=== PATIENT | male | born 1955 | race Caucasian/White ===

== ENCOUNTER 2017-03-26 09:52 | Emergency (ER) | payer BC ==
[2017-03-26 09:57] VITALS: BP 125/62; PULSE 74; RESP 20; TEMP 97.5
[2017-03-26] MEDS ORDERED: DEXAMETHASONE SOD PHOSPHATE 10 MG/ML 1 ML VIAL IM STA (10:10)
--- NOTE | 2017-03-26 10:17 | ED ---
General Adult HPI - General Chief complaint: Back Pain/Injury Stated complaint: BACK PAIN Time Seen by Provider: 03/26/17 10:03 Source: patient, RN notes reviewed Mode of arrival: ambulatory Limitations: no limitations - History of Present Illness Initial comments: 61-year-old male presents with right lower back pain. Patient has had chronic back pain for many years. Denies any new injury. Denies any overuse. Patient states he normally does morning exercises and wall did not do these yesterday morning, his back tightened up throughout the day. Patient has had multiple MRIs x-ray in the past. No significant finding according to the patient. He denies any lower extremity symptoms, no paresthesias, no weakness. Patient has no bowel or bladder incontinence. Patient states that in the past the symptoms have always resolved with a steroid shot. He is going out of town the next several days and is concerned that this will not improved without dose of steroids. Only other medical history of hypercholesterolemia. Patient does take Motrin for his back pain on occasion. He also has Robaxin which she uses very infrequently. He has both of these medications at home. - Related Data Home Medications Medication Instructions Recorded Confirmed Ibuprofen [Motrin] 1 tab PO DIRECTED PRN 09/26/14 09/26/14 Previous Rx's Medication Instructions Recorded methylPREDNISolone Dose Pack 4 mg PO DIRECTED #21 package 03/26/17 [Medrol Dose Pack] Allergies Allergy/AdvReac Type Severity Reaction Status Date / Time No Known Allergies Allergy Verified 03/26/17 09:57 Review of Systems ROS Statement: Those systems with pertinent positive or pertinent negative responses have been documented in the HPI. ROS Other: All systems not noted in ROS Statement are negative. Past Medical History Past Medical History: No Reported History Additional Past Medical History / Comment(s): chronic back pain History of Any Multi-Drug Resistant Organisms: None Reported Additional Past Surgical History / Comment(s): PREVIOUS COLONOSCOPY Past Anesthesia/Blood Transfusion Reactions: No Reported Reaction Past Psychological History: No Psychological Hx Reported Smoking Status: Never smoker Past Alcohol Use History: Occasional Past Drug Use History: None Reported General Exam Limitations: no limitations General appearance: alert, in no apparent distress Head exam: Present: atraumatic, normocephalic Eye exam: Present: normal appearance, PERRL ENT exam: Present: normal exam, mucous membranes moist Neck exam: Present: normal inspection, full ROM. Absent: tenderness, meningismus Respiratory exam: Present: normal lung sounds bilaterally. Absent: respiratory distress Cardiovascular Exam: Present: regular rate, normal rhythm GI/Abdominal exam: Present: soft. Absent: distended, tenderness Extremities exam: Present: normal inspection, full ROM, normal capillary refill. Absent: pedal edema Back exam: Present: normal inspection, tenderness (Tenderness over the right sacroiliac joint) Neurological exam: Present: alert, oriented X3, CN II-XII intact, normal gait. Absent: motor sensory deficit (Normal gait, 2+ reflexes bilaterally at the patella.) Psychiatric exam: Present: normal affect, normal mood Skin exam: Present: warm, dry. Absent: cyanosis, diaphoretic Course Vital Signs 03/26/17 09:53 Temperature 97.5 F L Pulse Rate 74 Respiratory 20 Rate Blood Pressure 125/62 O2 Sat by Pulse 98 Oximetry Medical Decision Making - Medical Decision Making 61-year-old male with chronic back pain presents with 24 hours worsening pain. Patient has had this many times in the past. He states it resolves usually with steroids. No alarming features on history or exam. Patient is given Decadron, and instructed to start a Medrol Dosepak in 48 hours. Patient has his other medications at home. Diagnosis: muscular skeletal back pain. Disposition Clinical Impression: Mechanical back pain Disposition: HOME SELF-CARE Condition: Good Instructions: Chronic Back Pain (ED) Prescriptions: methylPREDNISolone Dose Pack [Medrol Dose Pack] 4 mg PO DIRECTED #21 package Referrals: Perez Lobo MD [Primary Care Provider] - 1-2 days Time of Disposition: 10:17
== END 2017-03-26 10:51 | disposition home or self-care (01) ==
LOC: EC 09:52
DX: M53.3 Sacrococcygeal disorders, not elsewhere classified (principal); G89.29 Other chronic pain
CPT/HCPCS: 99283; 96372; J1100

== ENCOUNTER → 2017-08-24 | Outpatient (CLI) | payer BC ==
--- NOTE | 2017-08-24 15:58 | XR ---
EXAM TYPE: LUMBAR SPINE X RAY SERIES COMPARISON: 09/13/2011 HISTORY: Chronic pain TECHNIQUE: 4 views are submitted. FINDINGS: Alignment is anatomic. The pedicles are intact. The transverse processes are intact. There is no s pondylolisthesis. Hypertrophic changes are seen at multiple levels with degenerative disc disease at L4-5, L1-2 and L2-L3. IMPRESSION: 1. Multilevel degenerative disc disease.
== END | disposition home or self-care (01) ==
LOC: RADXRMAIN 15:28
PROVIDERS: ATTEND Family Medicine
DX: M51.36 Other intervertebral disc degeneration, lumbar region (principal)
CPT/HCPCS: 72100

== ENCOUNTER 2019-06-14 07:54 | Observation (INO) | payer BC ==
[2019-06-14] MEDS ORDERED: NITROGLYCERIN OINT 1 INCH/GM PACKET TOPICAL STA (08:11)
[2019-06-14] MEDS ORDERED: ASPIRIN 81 MG PO STA (08:11)
--- NOTE | 2019-06-14 08:14 | ED ---
General Adult HPI - General Chief complaint: Chest Pain Stated complaint: chest pain Time Seen by Provider: 06/14/19 08:02 Source: patient, RN notes reviewed Mode of arrival: wheelchair Limitations: no limitations - History of Present Illness Initial comments: Patient is a pleasant 63-year-old male presenting to the emergency Department with chest discomfort. Patient has been having mild symptoms intermittently over the past week. Discomfort has been tight. This morning while doing some light exertion or patient had more severe discomfort rated 7/10. This was sharp and somewhat on the right side. No radiation. Symptoms have now resolved and patient is currently symptom-free. No associated dyspnea, nausea, or diaphoresis. No leg pain or leg swelling. No history of cardiac disease. Patient does have family history of cardiac disease. - Related Data Home Medications Medication Instructions Recorded Confirmed Ibuprofen [Motrin] 800 mg PO TID PRN 06/14/19 06/14/19 Krill Oil 500 mg PO DAILY 06/14/19 06/14/19 Methocarbamol [Robaxin] 500 mg PO TID PRN 06/14/19 06/14/19 Rosuvastatin [Crestor] 10 mg PO DAILY 06/14/19 06/14/19 Allergies Allergy/AdvReac Type Severity Reaction Status Date / Time No Known Allergies Allergy Verified 06/14/19 09:16 Review of Systems ROS Statement: Those systems with pertinent positive or pertinent negative responses have been documented in the HPI. ROS Other: All systems not noted in ROS Statement are negative. Constitutional: Denies: fever Eyes: Denies: eye pain ENT: Denies: ear pain Respiratory: Denies: cough, dyspnea Cardiovascular: Reports: chest pain Endocrine: Denies: fatigue Gastrointestinal: Denies: abdominal pain Genitourinary: Denies: urgency Musculoskeletal: Denies: back pain Skin: Denies: rash Neurological: Denies: weakness Past Medical History Past Medical History: No Reported History Additional Past Medical History / Comment(s): chronic back pain History of Any Multi-Drug Resistant Organisms: None Reported Additional Past Surgical History / Comment(s): PREVIOUS COLONOSCOPY Past Anesthesia/Blood Transfusion Reactions: No Reported Reaction Past Psychological History: No Psychological Hx Reported Smoking Status: Never smoker Past Alcohol Use History: Occasional Past Drug Use History: None Reported General Exam Limitations: no limitations General appearance: alert, in no apparent distress Head exam: Present: normocephalic Eye exam: Present: normal appearance, PERRL ENT exam: Present: normal oropharynx Neck exam: Present: normal inspection Respiratory exam: Present: normal lung sounds bilaterally. Absent: chest wall tenderness Cardiovascular Exam: Present: regular rate, normal rhythm Expanded Peripheral pulses: 2+: Radial (R), Radial (L), Posterior Tibialis (R), Posterior Tibialis (L) GI/Abdominal exam: Present: soft. Absent: tenderness Extremities exam: Present: normal inspection. Absent: pedal edema, calf tenderness Neurological exam: Present: alert Psychiatric exam: Present: normal affect, normal mood Skin exam: Present: normal color Course Vital Signs 06/14/19 07:58 Temperature 97.8 F Pulse Rate 71 Respiratory 18 Rate Blood Pressure 115/75 O2 Sat by Pulse 98 Oximetry EKG Findings - EKG Comments: EKG Findings:: Normal sinus rhythm 72. NV 160. QRS 82. QT 378. QTC 413. Normal axis. Normal QRS. No acute ST change. Medical Decision Making - Medical Decision Making Patient reevaluated and updated. Patient near symptom-free at this time. Patient and family updated on results and plan. Case was discussed in detail with Dr. Haro, who will admit covering for Dr. Lobo. - Lab Data Result diagrams: 06/14/19 08:15 06/14/19 08:15 Lab Results 06/14/19 06/14/19 06/14/19 Range/Units 08:15 08:15 08:15 WBC 6.8 (3.8-10.6) k/uL RBC 4.51 (4.30-5.90) m/uL Hgb 13.2 (13.0-17.5) gm/dL Hct 38.8 L (39.0-53.0) % MCV 85.9 (80.0-100.0) fL MCH 29.2 (25.0-35.0) pg MCHC 33.9 (31.0-37.0) g/dL RDW 12.5 (11.5-15.5) % Plt Count 233 (150-450) k/uL Neutrophils % 64 % Lymphocytes % 25 % Monocytes % 7 % Eosinophils % 2 % Basophils % 1 % Neutrophils # 4.4 (1.3-7.7) k/uL Lymphocytes # 1.7 (1.0-4.8) k/uL Monocytes # 0.5 (0-1.0) k/uL Eosinophils # 0.1 (0-0.7) k/uL Basophils # 0.1 (0-0.2) k/uL PT 9.8 (9.0-12.0) sec INR 0.9 (<1.2) APTT 23.4 (22.0-30.0) sec D-Dimer 0.40 (<0.60) mg/L FEU Sodium 141 (137-145) mmol/L Potassium 4.3 (3.5-5.1) mmol/L Chloride 106 (98-107) mmol/L Carbon Dioxide 26 (22-30) mmol/L Anion Gap 9 mmol/L BUN 25 H (9-20) mg/dL Creatinine 0.99 (0.66-1.25) mg/dL Est GFR (CKD-EPI)AfAm >90 (>60 ml/min/1.73 sqM) Est GFR (CKD-EPI)NonAf 81 (>60 ml/min/1.73 sqM) Glucose 98 (74-99) mg/dL Calcium 9.6 (8.4-10.2) mg/dL Magnesium 2.2 (1.6-2.3) mg/dL Total Bilirubin 0.5 (0.2-1.3) mg/dL AST 33 (17-59) U/L ALT 28 (21-72) U/L Alkaline Phosphatase 66 (38-126) U/L Creatine Kinase 293 H (55-170) U/L Troponin I (0.000-0.034) ng/mL Total Protein 7.2 (6.3-8.2) g/dL Albumin 4.2 (3.5-5.0) g/dL 06/14/19 Range/Units 08:15 WBC (3.8-10.6) k/uL RBC (4.30-5.90) m/uL Hgb (13.0-17.5) gm/dL Hct (39.0-53.0) % MCV (80.0-100.0) fL MCH (25.0-35.0) pg MCHC (31.0-37.0) g/dL RDW (11.5-15.5) % Plt Count (150-450) k/uL Neutrophils % % Lymphocytes % % Monocytes % % Eosinophils % % Basophils % % Neutrophils # (1.3-7.7) k/uL Lymphocytes # (1.0-4.8) k/uL Monocytes # (0-1.0) k/uL Eosinophils # (0-0.7) k/uL Basophils # (0-0.2) k/uL PT (9.0-12.0) sec INR (<1.2) APTT (22.0-30.0) sec D-Dimer (<0.60) mg/L FEU Sodium (137-145) mmol/L Potassium (3.5-5.1) mmol/L Chloride (98-107) mmol/L Carbon Dioxide (22-30) mmol/L Anion Gap mmol/L BUN (9-20) mg/dL Creatinine (0.66-1.25) mg/dL Est GFR (CKD-EPI)AfAm (>60 ml/min/1.73 sqM) Est GFR (CKD-EPI)NonAf (>60 ml/min/1.73 sqM) Glucose (74-99) mg/dL Calcium (8.4-10.2) mg/dL Magnesium (1.6-2.3) mg/dL Total Bilirubin (0.2-1.3) mg/dL AST (17-59) U/L ALT (21-72) U/L Alkaline Phosphatase (38-126) U/L Creatine Kinase (55-170) U/L Troponin I <0.012 (0.000-0.034) ng/mL Total Protein (6.3-8.2) g/dL Albumin (3.5-5.0) g/dL - Radiology Data Radiology results: image reviewed (Chest x-ray shows no acute process) Disposition Clinical Impression: Chest pain Disposition: ADMITTED IP TO THIS HOSP Is patient prescribed a controlled substance at d/c from ED?: No Referrals: Perez Lobo MD [Primary Care Provider] - 1-2 days Decision Time: 10:22
--- NOTE | 2019-06-14 08:32 | XR ---
EXAMINATION TYPE: XR chest 2V DATE OF EXAM: 06/14/2019 COMPARISON: NONE HISTORY: Chest pain TECHNIQUE: Frontal and lateral views of the chest are obtained. FINDINGS: There is no focal air space opacity, pleural effusion, or pneumothorax seen. The cardiac silhouette size is within normal limits. The osseous structures are intact. There are overlying car diac leads. IMPRESSION: No acute cardiopulmonary process.
[2019-06-14 08:35] LABS: Basophils # (A) 0.1 k/uL (0-0.2); Basophils % (A) 1 %; Eosinophils # (A) 0.1 k/uL (0-0.7); Eosinophils % (A) 2 %; HCT 38.8 % (39.0-53.0); HGB 13.2 gm/dL (13.0-17.5); Lymphocytes # (A) 1.7 k/uL (1.0-4.8); Lymphocytes % (A) 25 %; MCH 29.2 pg (25.0-35.0); MCHC 33.9 g/dL (31.0-37.0); MCV 85.9 fL (80.0-100.0); Mean Platelet Volume 5.8; Monocytes # (A) 0.5 k/uL (0-1.0); Monocytes % (A) 7 %; Neutrophils # (A) 4.4 k/uL (1.3-7.7); Neutrophils % (A) 64 %; Platelet Count 233 k/uL (150-450); RBC 4.51 m/uL (4.30-5.90); RDW 12.5 % (11.5-15.5); WBC 6.8 k/uL (3.8-10.6)
[2019-06-14 08:53] LABS: D-Dimer 0.4 mg/L FEU (<0.60); INR 0.9 (<1.2); Partial Thromboplastin Time 23.4 sec (22.0-30.0); Prothrombin Time 9.8 sec (9.0-12.0)
[2019-06-14 08:59] LABS: ALT 28 U/L (21-72); AST 33 U/L (17-59); African American GFR (CKD) >90 (>60 ml/min/1.73 sqM); Albumin 4.2 g/dL (3.5-5.0); Alkaline Phosphatase 66 U/L (38-126); Anion Gap 9 mmol/L; Blood Urea Nitrogen 25 mg/dL (9-20); Calcium 9.6 mg/dL (8.4-10.2); Carbon Dioxide 26 mmol/L (22-30); Chloride 106 mmol/L (98-107); Creatine Kinase 293 U/L (55-170); Glucose 98 mg/dL (74-99); Magnesium 2.2 mg/dL (1.6-2.3); Potassium 4.3 mmol/L (3.5-5.1); Sodium 141 mmol/L (137-145); Total Bilirubin 0.5 mg/dL (0.2-1.3); Total Protein 7.2 g/dL (6.3-8.2)
[2019-06-14] MEDS ORDERED: NITROGLYCERIN SL TABS 0.4 MG TAB SUBLINGUAL PRN (10:22)
[2019-06-14 12:08] LABS: Cholesterol 176 mg/dL (<200); HDL Cholesterol 46 mg/dL (40-60); LDL Cholesterol,Calculated 98 mg/dL (0-99); Triglycerides 162 mg/dL (<150)
--- NOTE | 2019-06-14 12:52 | P.CRDCN ---
History of Present Illness History of present illness: This is a pleasant 63-year-old male past medical history significant for dyslipidemia. He denies prior history of coronary artery disease and does not follow with a television technician for any reason. He states his father suffered a massive heart attack in his 50s. We have been asked to see him in consultation secondary to chest discomfort. He states for the previous one week inte rmittently he has been having pain in the right anterior chest wall. At times it does radiate slightly over to the midsternal chest however mostly remains on the right. His discomfort is not associated with activity or exertion. There is no radiation to the arm, back, neck or jaw. It is not associated with shortness of breath, dizziness, nausea, vomiting, diaphoresis or palpitations. He works the overnight shift and this morning while he was getting ready to leave for work he bent over to tie his shoe and pain in the right intensifier and felt like sharp little stabbing picks. EKG reveals sinus mechanism with no acute ST or T wave abnormalities noted. Chest x-ray is negative for an acute cardiopulmonary process. Laboratory data reviewed, cardiac enzymes negative 1 with a CK of 293, d-dimer 0.4, creatinine 0.99, sodium 141, potassium 4.3, magnesium 2.2. CBC unremarkable. Current daily cardiac medications include Crestor 10 mg daily. At the time of my exam: CONSTITUTIONAL: Denies fever. Denies chills. EYES: Denies blurred vision. Denies vision changes. Denies eye pain. EARS, NOSE, MOUTH & THROAT: Denies headache. Denies sore throat. Denies ear pain. CARDIOVASCULAR: Denies chest pain. Denies shortness of breath. Denies orthopnea. Denies PND. Denies palpitations. RESPIRATORY: Denies cough. GASTROINTESTINAL: Denies abdominal pain. Denies diarrhea. Denies constipation. Denies nausea. Denies vomiting. MUSCULOSKELETAL: Denies myalgias. INTEGUMENTARY: Denies pruitis. Denies rash. NEUROLOGIC: Denies numbness. Denies tingling. Denies weakness. PSYCHIATRIC: Denies anxiety. Denies depression. ENDOCRINE: Denies fatigue. Denies weight change. Denies polydipsia. Denies polyurina. GENITOURINARY: Denies burning, hematuria or urgency with micturation. HEMATOLOGIC: Denies history of anemia. Denies bleeding. Blood pressure 98/55 heart rate 67 afebrile maintaining oxygen saturation on room air GENERAL: This is a 63-year-old male in no apparent distress at the time of my examination. HEENT: Head is atraumatic, normocephalic. Pupils are equal, round. Sclerae anict montserrat. Conjunctivae are clear. Mucous membranes of the mouth are moist. Neck is supple. There is no jugular venous distention. No carotid bruit is heard. LUNGS: Clear to auscultation no wheezes, rales or rhonchi. No chest wall tenderness is noted on palpation or with deep breathing. HEART: Regular rate and rhythm without murmurs, rubs or gallops. S1 and S2 heard. ABDOMEN: Soft, nontender. Bowel sounds are heard. No organomegaly noted. EXTREMITIES: No evidence of peripheral edema and no calf tenderness noted. VASCULAR: Radial and dorsalis pedis pulses palpated, no evidence of clubbing. NEUROLOGIC: Patient is awake, alert and oriented x3. ASSESSMENT Chest pain, atypical for angina. Elevated CK suggestive of underlying musculoskeletal injury. Dyslipidemia Family history for premature coronary artery disease PLAN Obtain 2-D echocardiogram and Doppler study to assess cardiac structure and function. Continue to obtain serial enzymes to rule out an acute event. Symptoms are atypical to be of cardiac etiology. If enzymes and echo are normal he may be discharged in the morning and outpa tient stress testing will be advised. Thank you kindly for this consultation. Nurse Practitioner note has been reviewed, I agree with a documented findings and plan of care. Patient was seen and examined. Past Medical History Past Medical History: Hearing Disorder / Deafness, Hyperlipidemia Additional Past Medical History / Comment(s): Chronic low back pain, bilateral tinnitis. History of Any Multi-Drug Resistant Organisms: None Reported Additional Past Surgical History / Comment(s): Colonoscopies Past Anesthesia/Blood Transfusion Reactions: No Reported Reaction Smoking Status: Never smoker - Past Family History Father Family Medical History: Myocardial Infarction (AR) Additional Family Medical History / Comment(s): Father of a AR at the age of 57yrs Mother Family Medical History: Diabetes Mellitus Additional Family Medical History / Comment(s): Mother had heart problems. She lived to be 90yrs old. Medications and Allergies Home Medications Medication Instructions Recorded Confirmed Type Ibuprofen [Motrin] 800 mg PO TID PRN 10/25/19 10/25/19 History Krill Oil 500 mg PO DAILY 06/14/19 06/14/19 History Methocarbamol [Robaxin] 500 mg PO TID PRN 06/14/19 06/14/19 History Rosuvastatin [Crestor] 10 mg PO DAILY 06/14/19 06/14/19 History Allergies Allergy/AdvReac Type Severity Reaction Status Date / Time No Known Allergies Allergy Verified 06/14/19 09:16 Physical Exam Vitals: Vital Signs Temp Pulse Pulse Resp BP BP Pulse Ox 06/14/19 11:17 97.4 F L 57 L 16 117/66 100 06/14/19 10:33 67 20 98/65 97 06/14/19 07:58 97.8 F 71 18 115/75 98 Intake and Output 06/13/19 06/14/19 06/14/19 22:59 06:59 14:59 Other: Weight 74.843 kg Results 06/14/19 08:15 06/14/19 08:15 Cardiac Enzymes 06/14/19 06/14/19 Range/Units 08:15 08:15 AST 33 (17-59) U/L Troponin I <0.012 (0.000-0.034) ng/mL Coagulation 06/14/19 Range/Units 08:15 PT 9.8 (9.0-12.0) sec APTT 23.4 (22.0-30.0) sec CBC 06/14/19 Range/Units 08:15 WBC 6.8 (3.8-10.6) k/uL RBC 4.51 (4.30-5.90) m/uL Hgb 13.2 (13.0-17.5) gm/dL Hct 38.8 L (39.0-53.0) % Plt Count 233 (150-450) k/uL Comprehensive Metabolic Panel 06/14/19 Range/Units 08:15 Sodium 141 (137-145) mmol/L Potassium 4.3 (3.5-5.1) mmol/L Chloride 106 (98-107) mmol/L Carbon Dioxide 26 (22-30) mmol/L BUN 25 H (9-20) mg/dL Creatinine 0.99 (0.66-1.25) mg/dL Glucose 98 (74-99) mg/dL Calcium 9.6 (8.4-10.2) mg/dL AST 33 (17-59) U/L ALT 28 (21-72) U/L Alkaline Phosphatase 66 (38-126) U/L Total Protein 7.2 (6.3-8.2) g/dL Albumin 4.2 (3.5-5.0) g/dL Current Medications Generic Name Dose Route Start Last Admin Trade Name Freq PRN Reason Stop Dose Admin Aspirin 325 mg 06/15/19 09:00 Aspirin PO DAILY SAMIA Nitroglycerin 0.4 mg 06/14/19 10:22 Nitrostat SUBLINGUAL Q5M PRN Chest Pain Nitroglycerin 1 inch 06/14/19 12:00 Nitro-Bid Oint TOPICAL Q6HR SAMIA Sodium Chloride 10 ml 06/14/19 21:00 Saline Flush IV BID SAMIA Intake and Output 06/13/19 06/14/19 06/14/19 22:59 06:59 14:59 Other: Weight 74.843 kg Patient Weight 06/15/19 06:59 Weight 74.843 kg 06/14/19 08:15 06/14/19 08:15
[2019-06-14] MEDS: NITROGLYCERIN OINT 1 INCH/GM PACKET TOPICAL SCH ×3 (14:08→23:41)
[2019-06-14] MEDS: ATORVASTATIN 20 MG TAB PO SCH (14:10)
--- NOTE | 2019-06-14 19:01 | ECHOF ---
Referral Reason: MEASUREMENTS -------- HEIGHT: 167.6 cm WEIGHT: 74.8 kg BP: 117/66 RVIDd: 3.4 cm (< 3.3) IVSd: 1.1 cm (0.6 - 1.1) LVIDd: 4.2 cm (3.9 - 5.3) LVPWd: 1.0 cm (0.6 - 1.1) IVSs: 1.4 cm LVIDs: 3.0 cm LVPWs: 1.6 cm LA Diam: 3.4 cm (2.7 - 3.8) LAESV Index (A-L): 24.71 ml/m Ao Diam: 3.3 cm (2.0 - 3.7) AV Cusp: 2.5 cm (1.5 - 2.6) MV EXCURSION: 20.651 mm (> 18.000) MV EF SLOPE: 173 mm/s (70 - 150) EPSS: 0.2 cm MV E Victor M: 0.75 m/s MV DecT: 200 ms MV A Victor M: 0.43 m/s MV E/A Ratio: 1.76 RAP: 5.00 mmHg RVSP: 18.23 mmHg TAPSE: 17.70 mm FINDINGS -------- Sinus rhythm. This was a technically good study. The left ventricular size is normal. Left ventricular wall thickness is normal. Overall left vent ricular systolic function is normal with, an EF between 60 - 65 %. The diastolic filling pattern is normal for the age of the patient 9.65. The right ventricle is mildly enlarged. Normal LA size by volume 22+/-6 ml/m2. The right atrium is normal in size. Interatrial and interventricular septum intact. The aortic valve is trileaflet and appears structurally normal. The mitral valve is normal. Mild tricuspid regurgitation present. Right ventricular systolic pressure is normal at < 35 mmHg. There is no pulmonic regurgitation present. The aortic root size is normal. Normal inferior vena cava with normal inspiratory collapse consistent with estimated right atrial pre ssure of 5 mmHg. There is no pericardial effusion. CONCLUSIONS -------- 1. Sinus rhythm. 2. This was a technically good study. 3. The left ventricular size is normal. 4. Left ventricular wall thickness is normal. 5. Overall left ventricular systolic function is normal with, an EF between 60 - 65 %. 6. The diastolic filling pattern is normal for the age of the patient 9.65 7. The right ventricle is mildly enlarged. 8. Normal LA size by volume 22+/-6 ml/m2. 9. The right atrium is normal in size. 10. Interatrial and interventricular septum intact. 11. The aortic valve is trileaflet and appears structurally normal. 12. The mitral valve is normal. 13. Mild tricuspid regurgitation present. 14. Right ventricular systolic pressure is normal at < 35 mmHg. 15. There is no pulmonic regurgitation present. 16. The aortic root size is normal. 17. Normal inferior vena cava with normal inspiratory collapse consistent with estimated right atrial pressure of 5 mmHg. 18. There is no pericardial effusion. ORIENTATION AND MOBILITY INSTRUCTOR: Johanny Cardoza RDCS
--- NOTE | 2019-06-14 21:58 | P.HPIM ---
History of Present Illness H&P Date: 06/14/19 Chief Complaint: Chest pain Patient is a 61-year-old male with a known history of hyperlipidemia, hearing disorder/deafness, family history of coronary artery disease came to ER with complaints of chest discomfort mainly right upper anterior chest wall pain. Patient has been having on and off chest pain for the past 1 week. Patient works mid day shifts. Yesterday when he is done with history of, sat and trying to tie his shoes and suddenly developed chest pain, sharp pressors with mild shortness of breath.. Radiating to the midsternal region. No radiating pain down the arms or to the back. No associated nausea vomiting or diaphoresis. No palpitations no leg swelling. Patient says that his father at age 57 acute [place] and also was told that his grandfather the same reason. EKG reveals sinus mechanism with no acute ST or T wave abnormalities noted. Chest x-ray is negative for an acute cardiopulmonary process. Laboratory data reviewed, cardiac enzymes negative 1 with a CK of 293, d-dimer 0.4, creatinine 0.99, sodium 141, potassium 4.3, magnesium 2.2. CBC unremarkable. Current daily cardiac medications include Crestor 10 mg daily. Review of Systems Constitutional: Patient denies any fever or chills . No generalized weakness or weight loss. Abdomen: Patient denied nausea vomiting and diarrhea and abdominal pain. Cardiovascular: Patient denies any chest pain or short of breath no palpitat ions. Respiratory: patient denied any cough is from production. No shortness of breath Neurologic: Patient denied any numbness or tingling headache. Musculoskeletal: Patient denies any complaints of joint swelling or deformity. Skin: Negative Psychiatric: Negative Endocrine: No heat or cold intolerance. No recent weight gain. Genitourinary: No dysuria or hematuria. All other 14 point ROS negative except the above Past Medical History Past Medical History: Hearing Disorder / Deafness, Hyperlipidemia Additional Past Medical History / Comment(s): Chronic low back pain, bilateral tinnitis. History of Any Multi-Drug Resistant Organisms: None Reported Additional Past Surgical History / Comment(s): Colonoscopies Past Anesthesia/Blood Transfusion Reactions: No Reported Reaction Smoking Status: Never smoker - Past Family History Father Family Medical History: Myocardial Infarction (MD) Additional Family Medical History / Comment(s): Father of a MD at the age of 57yrs Mother Family Medical History: Diabetes Mellitus Additional Family Medical History / Comment(s): Mother had heart problems. She lived to be 90yrs old. Medications and Allergies Home Medications Medication Instructions Recorded Confirmed Type Ibuprofen [Motrin] 800 mg PO TID PRN 06/14/19 06/14/19 History Krill Oil 500 mg PO DAILY 06/14/19 06/14/19 History Methocarbamol [Robaxin] 500 mg PO TID PRN 06/14/19 06/14/19 History Rosuvastatin [Crestor] 10 mg PO DAILY 06/14/19 06/14/19 History Allergies Allergy/AdvReac Type Severity Reaction Status Date / Time No Known Allergies Allergy Verified 06/14/19 09:16 Physical Exam Vitals: Vital Signs Temp Pulse Pulse Resp BP BP Pulse Ox 06/14/19 11:30 57 L 16 06/14/19 11:17 97.4 F L 57 L 16 117/66 100 06/14/19 10:33 67 20 98/65 97 06/14/19 07:58 97.8 F 71 18 115/75 98 Intake and Output 06/13/19 06/14/19 06/14/19 22:59 06:59 14:59 Other: Weight 74.843 kg PHYSICAL EXAMINATION: Patient is lying in the bed comfortably, no acute distress, awake alert and oriented.. HEENT: Normocephalic. Neck is supple. Pupils reactive. Nostrils clear. Oral cavity is moist. Ears reveal no drainage. Neck reveals no JVD, carotid bruits, or thyromegaly. CHEST EXAMINATION: Trachea is central. Symmetrical expansion. Lung stewart clear to auscultation and percussion. CARDIAC: Normal S1, S2 with no gallops. No murmurs ABDOMEN: Soft. Bowel sounds normal. No organomegaly. No abdominal bruits. Extremities: reveal no edema. No clubbing or cyanosis Neurologically awake, alert, oriented x3 with well-coordinated movements. No focal deficits noted Skin: No rash or skin lesions. Psychiatric: Coperative. Nonsuicidal Musculoskeletal: No joint swelling or deformity. Normal range of motion. Results CBC & Chem 7: 06/14/19 08:15 06/14/19 08:15 Labs: Abnormal Lab Results - Last 24 Hours (Table) 06/14/19 06/14/1906/14/19 Range/Units 08:15 08:15 08:15 Hct 38.8 L (39.0-53.0) % BUN 25 H (9-20) mg/dL Creatine Kinase 293 H (55-170) U/L Triglycerides 162 H (<150) mg/dL Thrombosis Risk Factor Assmnt - DVT/VTE Prophylaxis DVT/VTE Prophylaxis: Pharmacologic Prophylaxis ordered - Choose All That Apply Any of the Below Risk Factors Present?: Yes Each Factor Represents 1 point: Obesity (BMI >25) Other Risk Factors: Yes Each Risk Factor Represents 2 Points: Age 61-74 years Other congenital or acquired thrombophilia - If yes, enter type in comment: No Thrombosis Risk Factor Assessment Total Risk Factor Score: 3 Thrombosis Risk Factor Assessment Level: Moderate Risk Assessment and Plan Assessment: Atypical chest pain. Likely musculoskeletal origin. Rule out ACS Hyperlipidemia Mild rhabdomyolysis Family history of premature coronary artery disease DVT prophylaxis Plan: Patient be continued on telemetry monitoring. Troponin 2 negative. Serial troponins second follow-up cardiology recommendations. 2-D echocardiogram was ordered. Stress test as an outpatient as per cardiology. Further recommendations based on the clinical course. Time with Patient: Greater than 30
[2019-06-15] MEDS: NITROGLYCERIN OINT 1 INCH/GM PACKET TOPICAL SCH ×3 (04:39→11:55)
[2019-06-15] MEDS: ASPIRIN 81 MG PO SCH (08:11)
[2019-06-15] MEDS: ATORVASTATIN 20 MG TAB PO SCH (08:11)
--- NOTE | 2019-06-15 08:20 | P.PN ---
Subjective Progress Note Date: 06/15/19 This is a 63-year-old gentleman was admitted to the hospital with right-sided shoulder pain which appeared to be typical. Cardiac enzyme studies and EKGs have been negative. At this point we felt that patient could be discharged home and have an outpatient stress test. However, patient is concerned. Apparently his was mentioned about having a cardiac catheterization. If patient and family want to have cardiac catheterization, which can go ahead and do the procedure. Patient is advised not to eat anything from now onwards. Further recommendations depend upon the dictation of the patient and family. Meanwhile activity could be increased Objective - Vital Signs Vital signs: Vital Signs Temp 98.4 F 06/15/19 07:02 Pulse 68 06/15/19 07:02 Resp 18 06/15/19 08:00 BP 114/62 06/15/19 07:02 Pulse Ox 97 06/15/19 07:02 Intake & Output 06/14/19 06/15/19 06/15/19 18:59 06:59 18:59 Intake Total 240 Balance 240 Weight 74.843 kg Intake: Oral 240 Other: Voiding Method Toilet # Voids 1 1 - Exam GENERAL EXAM: Patient is alert and oriented and doesn't appear to be in any acute distress HEENT: Normocephalic. Normal reaction of pupils, equal size, normal range of extraocular motion. No erythema or exudates in the throat. NECK: No masses, no nuchal rigidity. CHEST: No chest wall deformity. LUNGS: Equal air entry with no crackles or wheeze. HEART: S1 and S2 normal with no audible mumurs or gallops. Regular rhythm, femorals equal on both sides.. ABDOMEN: No hepatosplenomegaly, normal bowel sounds, no guarding or rigidity. SKIN: No rashes CENTRAL NERVOUS SYSTEM: No focal deficits. EXTREMITIES: No cyanosis, clubbing or edema. - Labs CBC & Chem 7: 06/14/19 08:15 06/14/19 08:15 Labs: Abnormal Lab Results - Last 24 Hours (Table) 06/14/19 06/14/19 06/14/19 Range/Units 08:15 08:15 08:15 Hct 38.8 L (39.0-53.0) % BUN 25 H (9-20) mg/dL Creatine Kinase 293 H (55-170) U/L Triglycerides 162 H (<150) mg/dL Assessment and Plan (1) Chest pain Current Visit: Yes Status: Acute Code(s): R07.9 - CHEST PAIN, UNSPECIFIED SNOMED Code(s): 05175924 Plan: The pain appears to be atypical. Workup so far negative. If patient and family wants cardiac catheterization, that could be performed later today. I explained to the patient the risks of the procedure, including the possibility of stroke, myocardial infarction or even .
[2019-06-15] MEDS ORDERED: ASPIRIN 325 MG TAB PO SCH (09:00)
[2019-06-15] MEDS ORDERED: ATORVASTATIN 80 MG TAB PO STA (09:03)
[2019-06-15] MEDS ORDERED: ALPRAZolam 0.25 MG TAB PO PRN (09:03)
[2019-06-15] MEDS ORDERED: ALPRAZolam 0.5 MG TAB PO PRN (09:03)
[2019-06-15] MEDS ORDERED: ASPIRIN 325 MG TAB PO STA (09:03)
[2019-06-15] MEDS ORDERED: SODIUM CHLORIDE 0.9% 1,000 ML in EMPTY BAG 1 BAG IV ONE (09:03)
[2019-06-15] MEDS ORDERED: VERAPAMIL 2.5 MG/ML 2 ML AMP ONE (12:23)
[2019-06-15] MEDS ORDERED: LIDOCAINE 1% INJ 10MG/ML (20 ML MDV) ONE (12:24)
[2019-06-15] MEDS ORDERED: HEPARIN SODIUM 1,000 UN/ML (10ML VL) ONE (12:24)
[2019-06-15] MEDS ORDERED: IV FLUID CONTINUATION 1,000 ML IV ONE (12:38)
[2019-06-15] MEDS ORDERED: fentaNYL (PF) 50 MCG/ML 2 ML AMP ONE (12:49)
[2019-06-15] MEDS ORDERED: fentaNYL (PF) 50 MCG/ML 2 ML AMP IV ONE (12:58)
[2019-06-15] MEDS: MIDAZOLAM 2 MG/2 ML VIAL IV ONE ×2 (12:59→13:08)
[2019-06-15] MEDS ORDERED: LIDOCAINE 1% INJ 10MG/ML (20 ML MDV) SQ ONE (13:02)
[2019-06-15] MEDS ORDERED: VERAPAMIL SYRINGE (5 MG/10 ML) INTRAARTER ONE (13:08)
[2019-06-15] MEDS ORDERED: IOPAMIDOL-370 125ML BTL INJ ONE (13:16)
[2019-06-15] MEDS ORDERED: RX INFO: IV CONTRAST WAS GIVEN 1 EACH MISC MISCELLANE PRN (13:28)
[2019-06-15] MEDS: SODIUM CHLORIDE 0.9% 1,000 ML IV SCH ×2 (13:58→23:41)
[2019-06-15] MEDS: METOPROLOL TARTRATE 25 MG TAB PO SCH ×2 (15:07→19:42)
--- NOTE | 2019-06-15 18:18 | P.CARDCATH ---
Date of Procedure: 06/15/19 Preoperative Diagnosis: Recurrent chest pain with negative enzymes Postoperative Diagnosis: Critical lesion involving the distal LAD at the bifurcation of the diagonal Procedure(s) Performed: Left heart catheterization without left ventriculography Description of Procedure: HISTORY: This is a 63-year-old gentleman with a strong family history of ischemic heart disease was admitted to the hospital with right-sided chest pain which appeared to be typical. His cardiac enzymes and EKGs were negative. Patient and family wanted to have a cardiac catheterization for definitive diagnosis CONSENT:I have discussed the risks, benefits and alternative therapies for the above-mentioned procedure and for both sedation/analgesia as well as necessary blood product administration, if indicated, as they pertain to this patient. The patient has indicated understanding and acceptance of the risks and procedures discussed. PROCEDURE: Patient was brought to the lab in a fasting state. Patient was given some IV sedation. The right wrist is infiltrated with lidocaine and right artery was entered using Seldinger technique. A 6-Urdu catheter was left in place and selective coronary arteriography was performed. Patient tolerated the procedure well. TR band was applied for hemostasis. No immediate complications were noted and patient was transferred to [facility] in a stable condition Conscious Sedation: Versed 2mg Fentanyl 50 g Duration 17minutes HEMODYNAMICS: The aortic pressure is about 100/60. The left ventricle end- diastolic pressure is about 8. There was no gradient across the aortic valve SELECTIVE CORONARY ARTERIOGRAPHY: LEFT MAIN: This is normal in length and patent THE LEFT ANTERIOR DESCENDING CORONARY ARTERY:. This is a moderate caliber vessel giving rise to good-sized first and second diagonal branches. After the origin of the second diagonal branch, there is a focal lesion which appears to be eccentric and about 70%. However the LAD is small in caliber beyond this lesion THE LEFT CIRCUMFLEX AND IS CORONARY ARTERY: Small and nondominant. Free of occlusive disease THE RIGHT CORONARY ARTERY: Dominant vessel. Free of any Sigmund occlusive disease LEFT ventriculography: Not performed FINAL IMPRESSION: Critical lesion involving the distal LAD after the origin of the diagonal branch. However the LAD is small in caliber beyond this lesion PLAN: Discussed with Dr. Hdz. Because of the location and small nature of the LAD, maximum medical therapy is advised. If symptoms are not controlled, may consider stent placement PROGNOSIS: Fair
--- NOTE | 2019-06-15 22:41 | P.PN ---
Subjective Progress Note Date: 06/15/19 Principal diagnosis: Chest pain Patient is a 61-year-old male with a known history of hyperlipidemia, hearing disorder/deafness, family history of coronary artery disease came to ER with complaints of chest discomfort mainly right upper anterior chest wall pain. Patient has been having on and off chest pain for the past 1 week. Patient works mid day shifts. Yesterday when he is done with history of, sat and trying to tie his shoes and suddenly developed chest pain, sharp pressors with mild shortness of breath.. Radiating to the midsternal region. No radiating pain down the arms or to the back. No associated nausea vomiting or diaphoresis. No palpitations no leg swelling. Patient says that his father at age 57 acute [place] and also was told that his grandfather the same reason. EKG reveals sinus mechanism with no acute ST or T wave abnormalities noted. Chest x-ray is negative for an acute cardiopulmonary process. Laboratory data reviewed, cardiac enzymes negative 1 with a CK of 293, d-dimer 0.4, creatinine 0.99, sodium 141, potassium 4.3, magnesium 2.2. CBC unremarkable. Current daily cardiac medications include Crestor 10 mg daily. 06/15/2019 Patient underwent cardiac catheterization today. Currently denied any complaints of chest pain. No nausea vomiting or abdominal pain. Cardiac catheterization showed Critical lesion involving the distal LAD after the origin of the diagonal branch. However the LAD is small in caliber beyond this lesion Because of the location and small nature of the LAD, maximum medical therapy is advised. If symptoms are not controlled, may consider stent placement. No fever no chills. No headache or dizziness or lightheadedness. No palpitations. No orthopnea no PND. Patient is being continued on aspirin, metoprolol and statins. Current medications reviewed. Objective - Vital Signs Vital signs: Vital Signs Temp 97.9 F 06/15/19 19:26 Pulse 69 06/15/19 19:26 Resp 18 06/15/19 20:00 BP 106/68 06/15/19 19:26 Pulse Ox 96 06/15/19 19:26 Intake & Output 06/15/19 06/15/19 06/16/19 06:59 18:59 06:59 Intake Total 1336 Balance 1336 Intake: IV 400 Sodium Chloride 0.9% 1, 250 000 ml In Empty Bag 1 bag @ 1 ML/KG/HR 74.843 mls/ hr IV .[id number] ONE Rx#: [id number] Oral 736 Other 200 Other: Voiding Method Toilet Toilet # Voids 1 1 - Exam PHYSICAL EXAMINATION: Patient is lying in the bed comfortably, no acute distress, awake alert and oriented.. HEENT: Normocephalic. Neck is supple. Pupils reactive. Nostrils clear. Oral cavity is moist. Ears reveal no drainage. Neck reveals no JVD, carotid bruits, or thyromegaly. CHEST EXAMINATION: Trachea is central. Symmetrical expansion. Lung stewart clear to auscultation and percussion. CARDIAC: Normal S1, S2 with no gallops. No murmurs ABDOMEN: Soft. Bowel sounds normal. No organomegaly. No abdominal bruits. Extremities: reveal no edema. No clubbing or cyanosis Neurologically awake, alert, oriented x3 with well-coordinated movements. No focal deficits noted Skin: No rash or skin lesions. Psychiatric: Coperative. Nonsuicidal Musculoskeletal: No joint swelling or deformity. Normal range of motion. - Labs CBC & Chem 7: 06/14/19 08:15 06/14/19 08:15 Assessment and Plan Assessment: Atypical chest pain. Ruled out ACS Status post cardiac catheterization showing Critical lesion involving the distal LAD after the origin of the diagonal branch. Maximal medical therapy Hyperlipidemia Mild rhabdomyolysis Family history of premature coronary artery disease DVT prophylaxis Plan: Patient be continued on telemetry monitoring. Serial troponins negative. Patient underwent cardiac catheterization showing critical lesion involving distal LAD. 2-D echocardiogram showed normal ejection fraction. No wall motion abnormalities noted. Cardiology is following. Continue to monitor overnight. Further recommendations based on the clinical course. Time with Patient: Greater than 30
[2019-06-16 07:41] VITALS: BP 108/65; PULSE 67; RESP 16; TEMP 97.9
[2019-06-16] MEDS: ATORVASTATIN 20 MG TAB PO SCH (08:08)
[2019-06-16] MEDS: METOPROLOL TARTRATE 25 MG TAB PO SCH (08:08)
[2019-06-16] MEDS: ASPIRIN 81 MG PO SCH (08:09)
[2019-06-16] MEDS ORDERED: ISOSORBIDE MONONITRATE ER 15 MG TAB PO SCH (09:00)
--- NOTE | 2019-06-16 09:02 | P.PN ---
Subjective Progress Note Date: 06/16/19 This is a 63-year-old gentleman was admitted to the hospital with right-sided shoulder pain which appeared to be typical. Cardiac enzyme studies and EKGs have been negative. At this point we felt that patient could be discharged home and have an outpatient stress test. However, patient is concerned. Apparently his was mentioned about having a cardiac catheterization. If patient and family want to have cardiac catheterization, which can go ahead and do the procedure. Patient is advised not to eat anything from now onwards. Further recommendations depend upon the dictation of the patient and family. Meanwhile activity could be increased 06/16/2019: This patient is a doing well since procedure yesterday. Hasn't had any chest pain. His puncture site in the right wrist is healing well without any hematoma. Radial pulses are bounding. Lungs are clear. Heart is regular. No JVD. No peripheral edema. We'll continue with current medical therapy including beta kimberly, nitrates and aspirin along with lipid-lowering agent. Patient will have follow-up with me in one week. Objective - Vital Signs Vital signs: Vital Signs Temp 97.9 F 06/16/19 07:35 Pulse 67 06/16/19 07:35 Resp 16 06/16/19 07:35 BP 108/65 06/16/19 07:35 Pulse Ox 94 L 06/16/19 07:35 Intake & Output 06/15/19 06/16/19 06/16/19 18:59 06:59 18:59 Intake Total 1336 Balance 1336 Intake: IV 400 Sodium Chloride 0.9% 1, 250 000 ml In Empty Bag 1 bag @ 1 ML/KG/HR 74.843 mls/ hr IV .[id number] ONE Rx#: [id number] Oral 736 Other 200 Other: Voiding Method Toilet Toilet # Voids 1 1 - Exam GENERAL EXAM: Patient is alert and oriented and doesn't appear to be in any acute distress HEENT: Normocephalic. Normal reaction of pupils, equal size, normal range of extraocular motion. No erythema or exudates in the throat. NECK: No masses, no nuchal rigidity. CHEST: No chest wall deformity. LUNGS: Equal air entry with no crackles or wheeze. HEART: S1 and S2 normal with no audible mumurs or gallops. Regular rhythm, femorals equal on both sides.. ABDOMEN: No hepatosplenomegaly, normal bowel sounds, no guarding or rigidity. SKIN: No rashes CENTRAL NERVOUS SYSTEM: No focal deficits. EXTREMITIES: No cyanosis, clubbing or edema. Puncture site: Soft without any hematoma. Radial pulses are bounding - Labs CBC & Chem 7: 06/14/19 08:15 06/14/19 08:15 Assessment and Plan (1) Chest pain Current Visit: Yes Status: Acute Code(s): R07.9 - CHEST PAIN, UNSPECIFIED SNOMED Code(s): 08861684 Plan: Patient is found to have single-vessel disease. The lesion is at a bifurcation point and the LAD beyond the lesion is small in caliber. Advised medical therapy at this time. Patient has been stable since the procedure. Patient could be discharged home on beta blockers and nitrates. He will also continue aspirin and lipid-lowering agent. Advised to exercise regularly. Follow-up in the office in one week
--- NOTE | 2019-06-23 22:56 | P.DS ---
Providers Date of admission: 06/14/19 10:22 Expected date of discharge: 06/16/19 Attending physician: Eulogio Haro Consults: 06/14/19 10:22 Consult Physician Urgent Consulting Provider: Layne Piña Consult Reason/Comments: cp Do you want consulting provider notified?: Yes Primary care physician: Perez Lobo Hospital Course: Discharge Diagnosis Atypical chest pain. Ruled out ACS. s/p cath single vessel disease. medical management by cardiology. Status post cardiac catheterization showing Critical lesion involving the distal LAD after the origin of the diagonal branch. Maximal medical therapy Hyperlipidemia Mild rhabdomyolysis Family history of premature coronary artery disease DVT prophylaxis Hospital course. Patient is a 61-year-old male with a known history of hyperlipidemia, hearing disorder/deafness, family history of coronary artery disease came to ER with complaints of chest discomfort mainly right upper anterior chest wall pain. Patient has been having on and off chest pain for the past 1 week. Patient works mid day shifts. Yesterday when he is done with history of, sat and trying to tie his shoes and suddenly developed chest pain, sharp pressors with mild shortness of breath.. Radiating to the midsternal region. No radiating pain down the arms or to the back. No associated nausea vomiting or diaphoresis. No palpitations no leg swelling. Patient says that his father at age 57 acute [place] and also was told that his grandfather the same reason. EKG reveals sinus mechanism with no acute ST or T wave abnormalities noted. Chest x-ray is negative for an acute cardiopulmonary process. Laboratory data reviewed, cardiac enzymes negative 1 with a CK of 293, d-dimer 0.4, creatinine 0.99, sodium 141, potassium 4.3, magnesium 2.2. CBC unremarkable. Current daily cardiac medications include Crestor 10 mg daily. 06/15/2019 Patient underwent cardiac catheterization today. Currently denied any complaints of chest pain. No nausea vomiting or abdominal pain. Cardiac catheterization showed Critical lesion involving the distal LAD after the origin of the diagonal branch. However the LAD is small in caliber beyond this lesion Because of the location and small nature of the LAD, maximum medical therapy is advised. If symptoms are not controlled, may consider stent placement. No fever no chills. No headache or dizziness or lightheadedness. No palpitations. No orthopnea no PND. Patient is being continued on aspirin, metoprolol and statins. 06/16/19 Patient denied any complaints of chest pain or shortness of breath today. No EKG changes. Patient underwent cardiac catheterization which showed nonobstructive coronary artery disease. Patient will be continued on aspirin and metoprolol as per cardiology recommendations. Continue to follow in the clinic for further management by cardiology. Otherwise patient is currently symptomatic and is stable to be discharged home. Vital Signs Temp 97.9 F 06/16/19 07:35 Pulse 67 06/16/19 07:35 Resp 16 06/16/19 07:35 BP 108/65 06/16/19 07:35 Pulse Ox 94 L 06/16/19 07:35 Intake & Output 06/15/19 06/16/19 06/16/19 18:59 06:59 18:59 Intake Total 1336 Balance 1336 Intake: IV 400 Sodium Chloride 0.9% 1, 250 000 ml In Empty Bag 1 bag @ 1 ML/KG/HR 74.843 mls/ hr IV .[id number] ONE Rx#: [id number] Oral 736 Other 200 Other: Voiding Method Toilet Toilet # Voids 1 1 - Exam GENERAL EXAM: Patient is alert and oriented and doesn't appear to be in any acute distress HEENT: Normocephalic. Normal reaction of pupils, equal size, normal range of extraocular motion. No erythema or exudates in the throat. NECK: No masses, no nuchal rigidity. CHEST: No chest wall deformity. LUNGS: Equal air entry with no crackles or wheeze. HEART: S1 and S2 normal with no audible mumurs or gallops. Regular rhythm, fem orals equal on both sides.. ABDOMEN: No hepatosplenomegaly, normal bowel sounds, no guarding or rigidity. SKIN: No rashes CENTRAL NERVOUS SYSTEM: No focal deficits. EXTREMITIES: No cyanosis, clubbing or edema. Patient Condition at Discharge: Good Plan - Discharge Summary Discharge Rx Participant: No New Discharge Prescriptions: New Atorvastatin [Lipitor] 20 mg PO DAILY #30 tab Isosorbide Mononitrate ER [Imdur] 15 mg PO DAILY #30 dose Metoprolol Tartrate [Lopressor] 25 mg PO BID #60 tab Nitroglycerin Sl Tabs [Nitrostat] 0.4 mg SUBLINGUAL Q5M PRN #30 tab PRN Reason: Chest Pain Continue Methocarbamol [Robaxin] 500 mg PO TID PRN PRN Reason: Muscle Spasm Krill Oil 500 mg PO DAILY Discontinued Rosuvastatin [Crestor] 10 mg PO DAILY Ibuprofen [Motrin] 800 mg PO TID PRN PRN Reason: Pain Discharge Medication List Krill Oil 500 mg PO DAILY 06/14/19 [History] Methocarbamol [Robaxin] 500 mg PO TID PRN 06/14/19 [History] Atorvastatin [Lipitor] 20 mg PO DAILY #30 tab 06/15/19 [Rx] Isosorbide Mononitrate ER [Imdur] 15 mg PO DAILY #30 dose 06/15/19 [Rx] Metoprolol Tartrate [Lopressor] 25 mg PO BID #60 tab 06/15/19 [Rx] Nitroglycerin Sl Tabs [Nitrostat] 0.4 mg SUBLINGUAL Q5M PRN #30 tab 06/15/19 [Rx] Follow up Appointment(s)/Referral(s): Perez Lobo MD [Primary Care Provider] - 1-2 days Lisa Chance MD [STAFF PHYSICIAN] - 1 Week Discharge Disposition: HOME SELF-CARE
== END 2019-06-16 09:57 | disposition home or self-care (01) ==
LOC: EC 07:54 → 1SOBS 10:22
PROVIDERS: ADMIT Internal Medicine; ATTEND Internal Medicine
DX: R07.89 Other chest pain (principal); R06.02 Shortness of breath; G89.29 Other chronic pain; E78.5 Hyperlipidemia, unspecified; R74.8 Abnormal levels of other serum enzymes; H91.90 Unspecified hearing loss, unspecified ear; M54.5 Low back pain; M62.82 Rhabdomyolysis; M25.511 Pain in right shoulder; I25.110 Atherosclerotic heart disease of native coronary artery with unstable angina pectoris; Z79.1 Long term (current) use of non-steroidal anti-inflammatories (NSAID); Z79.899 Other long term (current) drug therapy; Z83.3 Family history of diabetes mellitus; Z82.49 Family history of ischemic heart disease and other diseases of the circulatory system; E66.9 Obesity, unspecified; Z68.26 Body mass index [BMI] 26.0-26.9, adult
CPT/HCPCS: 99285; 36415; 93005; 93306; 93458; 85379; 80061; 80053; 82550; 83735; 84484; 85025; 85610; 85730; 71046; G0378 ×3; C1769; C1894; J2250; J2001; J3010; J1644; Q9967

== ENCOUNTER → 2020-05-11 | Outpatient (CLI) | payer BC ==
[2020-05-11 17:43] LABS: Chol/HDL Ratio 3.52; LDL Cholesterol,Calculated 82.4 mg/dL (0.0-131.0); VLDL Calculation 23.6 mg/dL (5.00-40.00)
== END | disposition home or self-care (01) ==
LOC: LABWHC1 09:00
PROVIDERS: ATTEND Internal Medicine Cardiovascular Disease
DX: E78.5 Hyperlipidemia, unspecified (principal); I25.10 Atherosclerotic heart disease of native coronary artery without angina pectoris; I10 Essential (primary) hypertension
CPT/HCPCS: 36415; 80061; 82550; 84450; 84460

== ENCOUNTER 2021-07-02 14:27 | Emergency (ER) | payer BC ==
[2021-07-02 15:13] VITALS: TEMP 98.9
[2021-07-02] MEDS ORDERED: SODIUM CHLORIDE 0.9% 50 ML IVPB ONE (20:00)
[2021-07-02] MEDS ORDERED: CASIRIVIMAB/IMDEVIMAB (EUA) 1,200 MG in SODIUM CHLORIDE 0.9% 100 ML IVPB ONE (20:00)
[2021-07-02 20:03] VITALS: RESP 18
--- NOTE | 2021-07-02 20:15 | ED ---
General Adult HPI - General Chief complaint: Upper Respiratory Infection Stated complaint: Sent in by Dr. Lobo-Infusion Time Seen by Provider: 07/02/21 19:38 Source: patient, RN notes reviewed, old records reviewed Mode of arrival: ambulatory Limitations: no limitations - History of Present Illness Initial comments: 65 -year-old male who presents for evaluation of cough, congestion. Patient was diagnosed with coronavirus today. He has been symptomatic for proximally 5 days. He was sent in by his primary care physician for monoclonal antibody the rapy. He states that overall he feels pretty good. No dyspnea. No vomiting. Patient is not vaccinated. - Related Data Home Medications Medication Instructions Recorded Confirmed Krill Oil 500 mg PO DAILY 06/14/19 06/14/19 methocarbamoL [Robaxin] 500 mg PO TID PRN 06/14/19 06/14/19 Previous Rx's Medication Instructions Recorded Atorvastatin [Lipitor] 20 mg PO DAILY #30 tab 06/15/19 Isosorbide Mononitrate ER [Imdur] 15 mg PO DAILY #30 dose 06/15/19 Metoprolol Tartrate [Lopressor] 25 mg PO BID #60 tab 06/15/19 Nitroglycerin Sl Tabs [Nitrostat] 0.4 mg SUBLINGUAL Q5M PRN #30 tab 06/15/19 Allergies Allergy/AdvReac Type Severity Reaction Status Date / Time No Known Allergies Allergy Verified 07/02/21 15:13 Review of Systems ROS Statement: Those systems with pertinent positive or pertinent negative responses have been documented in the HPI. ROS Other: All systems not noted in ROS Statement are negative. Past Medical History Past Medical History: Hearing Disorder / Deafness, Hyperlipidemia Additional Past Medical History / Comment(s): Chronic low back pain, bilateral tinnitis. History of Any Multi-Drug Resistant Organisms: None Reported Additional Past Surgical History / Comment(s): Colonoscopies Past Anesthesia/Blood Transfusion Reactions: No Reported Reaction Past Psychological History: No Psychological Hx Reported Smoking Status: Never smoker Past Alcohol Use History: Occasional Past Drug Use History: None Reported - Past Family History Father Family Medical History: Myocardial Infarction ([place]) Additional Family Medical History / Comment(s): Father of a [place] at the age of 57yrs Mother Family Medical History: Diabetes Mellitus Additional Family Medical History / Comment(s): Mother had heart problems. She lived to be 90yrs old. General Exam Limitations: no limitations General appearance: alert, in no apparent distress Head exam: Present: atraumatic, normocephalic Eye exam: Present: normal appearance, PERRL ENT exam: Present: normal exam Neck exam: Present: normal inspection. Absent: tenderness, meningismus Respiratory exam: Present: normal lung sounds bilaterally. Absent: respiratory distress, wheezes Cardiovascular Exam: Present: regular rate, normal rhythm GI/Abdominal exam: Present: soft. Absent: distended, tenderness, guarding Extremities exam: Present: normal inspection, normal capillary refill. Absent: pedal edema Neurological exam: Present: alert, oriented X3 Psychiatric exam: Present: normal affect, normal mood Skin exam: Present: warm, dry, intact Course Vital Signs 07/02/21 07/02/21 15:10 20:00 Temperature 98.9 F Pulse Rate 63 64 Respiratory 20 18 Rate Blood Pressure 100/64 133/81 O2 Sat by Pulse 99 99 Oximetry Medical Decision Making - Medical Decision Making 65-year-old male who had presented for monoclonal antibody. Patient well- appearing with normal oxygenation, no respiratory distress. He is administered monoclonal antibodies. He is given strict return parameters. He will follow-up with his primary care physician. He will quarantine. Disposition Clinical Impression: COVID-19 Disposition: HOME SELF-CARE Condition: Good Instructions (If sedation given, give patient instructions): Coronavirus Disease 2019 (COVID-19) Is patient prescribed a controlled substance at d/c from ED?: No Referrals: Perez Lobo MD [Primary Care Provider] - 1-2 days Time of Disposition: 21:15
[2021-07-02 21:40] VITALS: BP 122/71; PULSE 67
== END 2021-07-02 21:40 | disposition home or self-care (01) ==
LOC: EC 14:27
DX: U07.1 COVID-19 (principal); E78.5 Hyperlipidemia, unspecified; Z79.899 Other long term (current) drug therapy; Z82.49 Family history of ischemic heart disease and other diseases of the circulatory system; Z83.3 Family history of diabetes mellitus
CPT/HCPCS: 99283 ×2; M0243; Q0243

== ENCOUNTER → 2021-07-02 | Outpatient (CLI) | payer BC | END | disposition home or self-care (01) | LOC: LABWHC1 12:15 | PROVIDERS: ATTEND Family Medicine | DX: U07.1 COVID-19 (principal); J06.9 Acute upper respiratory infection, unspecified | CPT/HCPCS: 87502; 87635; C9803 ==

== ENCOUNTER 2021-09-05 10:56 | Emergency (ER) | payer BC ==
[2021-09-05 11:43] VITALS: RESP 18; TEMP 98
[2021-09-05] MEDS ORDERED: SODIUM CHLORIDE 0.9% 1,000 ML IV STA (11:56)
--- NOTE | 2021-09-05 12:09 | ED ---
General Adult HPI - General Chief complaint: Neuro Symptoms/Deficit Stated complaint: dizziness Time Seen by Provider: 09/05/21 11:46 Source: patient, RN notes reviewed Mode of arrival: ambulatory Limitations: no limitations - History of Present Illness Initial comments: 65-year-old male presents to the emergency department for evaluation of dizziness, onset this morning. 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 States he had just eaten a morning snack and denies any increase stress or anxiety. 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 States position change and activity did not change dizziness. Denies headache, blurry vision, loss of function, change in coordination, speech pattern alteration, chest pain, shortness of breath, difficulty breathing, abdominal pain, nausea, vomiting, diarrhea, dysuria, or lower extremity weakness. - Related Data Home Medications Medication Instructions Recorded Confirmed Krill Oil 500 mg PO DAILY 06/14/19 06/14/19 methocarbamoL [Robaxin] 500 mg PO TID PRN 06/14/19 06/14/19 Previous Rx's Medication Instructions Recorded Atorvastatin [Lipitor] 20 mg PO DAILY #30 tab 06/15/19 Isosorbide Mononitrate ER [Imdur] 15 mg PO DAILY #30 dose 06/15/19 Metoprolol Tartrate [Lopressor] 25 mg PO BID #60 tab 06/15/19 Nitroglycerin Sl Tabs [Nitrostat] 0.4 mg SUBLINGUAL Q5M PRN #30 tab 06/15/19 Allergies Allergy/AdvReac Type Severity Reaction Status Date / Time acetaminophen [From Vicodin] AdvReac Nausea Verified 09/05/21 11:43 hydrocodone [From Vicodin] AdvReac Nausea Verified 09/05/21 11:43 Review of Systems ROS Statement: Those systems with pertinent positive or pertinent negative responses have been documented in the HPI. ROS Other: All systems not noted in ROS Statement are negative. Past Medical History Past Medical History: Hearing Disorder / Deafness, Hyperlipidemia Additional Past Medical History / Comment(s): Chronic low back pain, bilateral tinnitis, was told "slight blockage in heart" History of Any Multi-Drug Resistant Organisms: None Reported Additional Past Surgical History / Comment(s): Colonoscopies, cardiac back Past Anesthesia/Blood Transfusion Reactions: No Reported Reaction Past Psychological History: No Psychological Hx Reported Smoking Status: Never smoker Past Alcohol Use History: Occasional Past Drug Use History: None Reported - Past Family History Father Family Medical History: Myocardial Infarction ([place]) Additional Family Medical History / Comment(s): Father of a [place] at the age of 57yrs Mother Family Medical History: Diabetes Mellitus Additional Family Medical History / Comment(s): Mother had heart problems. She lived to be 90yrs old. General Exam Limitations: no limitations (Well-developed, well-nourished male in no acute distress. Initial temperature 98.0, pulse 55, respirations 18, blood pressure 115/56, pulse ox 98% on room air.) General appearance: alert, in no apparent distress Head exam: Present: atraumatic, normocephalic, normal inspection Eye exam: Present: normal appearance, PERRL, EOMI. Absent: scleral icterus, conjunctival injection, periorbital swelling ENT exam: Present: normal exam, normal oropharynx, mucous membranes moist, TM's normal bilaterally Respiratory exam: Present: normal lung sounds bilaterally. Absent: respiratory distress, wheezes, rales, rhonchi, stridor Cardiovascular Exam: Present: normal rhythm, bradycardia, normal heart sounds GI/Abdominal exam: Present: soft, normal bowel sounds. Absent: distended, tend erness, guarding, rebound, rigid Extremities exam: Present: normal inspection, full ROM, normal capillary refill. Absent: tenderness, pedal edema, joint swelling, calf tenderness Neurological exam: Present: alert, oriented X3 Expanded Patient oriented to: Present: person, place, time Speech: Present: fluid speech Cranial nerves: EOM's Intact: Normal, Tongue Deviation: Normal, Nystagmus: Normal Cerebellar function: Finger to Nose: Normal, Romberg: Normal Upper motor neuron: Pronator Drift: Normal Motor strength exam: RUE: 5, LUE: 5, RLE: 5, LLE: 5 Eye Response: (4) open spontaneously Motor Response: (6) obeys commands Verbal Response: (5) oriented Beatriz Total: 15 Psychiatric exam: Present: normal affect, normal mood Skin exam: Present: warm, dry, intact, normal color. Absent: rash Course Vital Signs 09/05/21 09/05/21 09/05/21 11:38 12:26 14:30 Temperature 98.0 F Pulse Rate 55 L 52 L 52 L Respiratory 18 18 18 Rate Blood Pressure 115/56 105/69 107/71 O2 Sat by Pulse 98 100 Oximetry - Reevaluation(s) Reevaluation #1: 09/05/21 13:45 Upon reevaluation, patient is resting comfortably with no further dizziness or additional symptoms. Patient's heart rate is noted to be 50 while at rest, however increase into the 60s with position change and movement. 09/05/21 15:12 Discussed admission with patient. He is hesitant and would prefer some time to think about it and discuss with his spouse at bedside. Will follow-up shortly. Medical Decision Making - Medical Decision Making 65-year-old male with a past medical history of CAD presents to the emergency Department with complaints of dizziness that started this morning while seated at work.. Upon exam, patient is well-appearing and in no acute distress. He has no focal neurological deficits or ACS symptoms. His vital signs are stable with the exception of persistent bradycardia; does take Lopressor twice daily. Laboratory studies were obtained and are unremarkable. EKG shows normal sinus bradycardia with no ectopy or ST segment changes. CT of the brain and chest x- ray are both negative as well. Patient is ambulatory without difficulty. Did discuss possible admission, though patient would prefer to be discharged home in order to follow up outpatient. Considering physical exam findings and workup results, along with verbalization of willingness to return with any change or return of symptoms, joint decision was made to discharge patient home to follow up with PCP and cardiology. Patient was provided a note for work in order to accommodate these appointments. Again, return parameters were stressed in detail with this patient. He and spouse verbalized understanding and agreed wi th this plan. His care was discussed with my attending Dr. Brenner. - Lab Data Result diagrams: 09/05/21 12:15 09/05/21 12:15 Lab Results 09/05/21 09/05/21 09/05/21 Range/Units 12:15 12:15 12:15 WBC 5.2 (3.8-10.6) k/uL RBC 4.66 (4.30-5.90) m/uL Hgb 13.7 (13.0-17.5) gm/dL Hct 41.0 (39.0-53.0) % MCV 88.0 (80.0-100.0) fL MCH 29.4 (25.0-35.0) pg MCHC 33.4 (31.0-37.0) g/dL RDW 12.3 (11.5-15.5) % Plt Count 196 (150-450) k/uL MPV 7.4 Neutrophils % 64 % Lymphocytes % 23 % Monocytes % 8 % Eosinophils % 3 % Basophils % 0 % Neutrophils # 3.3 (1.3-7.7) k/uL Lymphocytes # 1.2 (1.0-4.8) k/uL Monocytes # 0.4 (0-1.0) k/uL Eosinophils # 0.2 (0-0.7) k/uL Basophils # 0.0 (0-0.2) k/uL PT 9.8 (9.0-12.0) sec INR 0.9 (<1.2) APTT 22.7 (22.0-30.0) sec Sodium 139 (137-145) mmol/L Potassium 4.4 (3.5-5.1) mmol/L Chloride 106 (98-107) mmol/L Carbon Dioxide 26 (22-30) mmol/L Anion Gap 7 mmol/L BUN 20 (9-20) mg/dL Creatinine 0.82 (0.66-1.25) mg/dL Est GFR (CKD-EPI)AfAm >90 (>60 ml/min/1.73 sqM) Est GFR (CKD-EPI)NonAf >90 (>60 ml/min/1.73 sqM) Glucose 84 (74-99) mg/dL Calcium 9.2 (8.4-10.2) mg/dL Total Bilirubin 0.5 (0.2-1.3) mg/dL AST 36 (17-59) U/L ALT 29 (4-49) U/L Alkaline Phosphatase 64 (38-126) U/L Troponin I (0.000-0.034) ng/mL Total Protein 7.0 (6.3-8.2) g/dL Albumin 4.2 (3.5-5.0) g/dL Urine Color Urine Appearance (Clear) Urine pH (5.0-8.0) Ur Specific Bradford (1.001-1.035) Urine Protein (Negative) Urine Glucose (UA) (Negative) Urine Ketones (Negative) Urine Blood (Negative) Urine Nitrite (Negative) Urine Bilirubin (Negative) Urine Urobilinogen (<2.0) mg/dL Ur Leukocyte Esterase (Negative) 09/05/21 09/05/21 Range/Units 12:15 12:49 WBC (3.8-10.6) k/uL RBC (4.30-5.90) m/uL Hgb (13.0-17.5) gm/dL Hct (39.0-53.0) % MCV (80.0-100.0) fL MCH (25.0-35.0) pg MCHC (31.0-37.0) g/dL RDW (11.5-15.5) % Plt Count (150-450) k/uL MPV Neutrophils % % Lymphocytes % % Monocytes % % Eosinophils % % Basophils % % Neutrophils # (1.3-7.7) k/uL Lymphocytes # (1.0-4.8) k/uL Monocytes # (0-1.0) k/uL Eosinophils # (0-0.7) k/uL Basophils # (0-0.2) k/uL PT (9.0-12.0) sec INR (<1.2) APTT (22.0-30.0) sec Sodium (137-145) mmol/L Potassium (3.5-5.1) mmol/L Chloride (98-107) mmol/L Carbon Dioxide (22-30) mmol/L Anion Gap mmol/L BUN (9-20) mg/dL Creatinine (0.66-1.25) mg/dL Est GFR (CKD-EPI)AfAm (>60 ml/min/1.73 sqM) Est GFR (CKD-EPI)NonAf (>60 ml/min/1.73 sqM) Glucose (74-99) mg/dL Calcium (8.4-10.2) mg/dL Total Bilirubin (0.2-1.3) mg/dL AST (17-59) U/L ALT (4-49) U/L Alkaline Phosphatase (38-126) U/L Troponin I <0.012 (0.000-0.034) ng/mL Total Protein (6.3-8.2) g/dL Albumin (3.5-5.0) g/dL Urine Color Yellow Urine Appearance Clear (Clear) Urine pH 5.5 (5.0-8.0) Ur Specific Bradford 1.025 (1.001-1.035) Urine Protein Negative (Negative) Urine Glucose (UA) Negative (Negative) Urine Ketones Negative (Negative) Urine Blood Negative (Negative) Urine Nitrite Negative (Negative) Urine Bilirubin Negative (Negative) Urine Urobilinogen <2.0 (<2.0) mg/dL Ur Leukocyte Esterase Negative (Negative) - EKG Data EKG shows normal: sinus rhythm Rate: bradycardia EKG Comments: EKG was obtained at 1216 and shows sinus bradycardia. Ventricular rate 54, MN interval 156, QRS duration 84, QT/QTc 428/405. Interpretation is otherwise normal ECG. Disposition Clinical Impression: Dizziness, nonspecific, Bradycardia Disposition: HOME SELF-CARE Condition: Stable Instructions (If sedation given, give patient instructions): Dizziness (ED) Additional Instructions: Please call your PCP or cad librarian in the morning to schedule follow-up appointment. You were provided with a work note for the next 2 days. Your heart rate was low (bradycardia) with a rate in the 50s. I expect this is due to your Lopressor; please continue to take this medication unless directed otherwise. Do not hesitate to return the emergency department with any new, worsening, or concerning symptoms as discussed. Is patient prescribed a controlled substance at d/c from ED?: No Referrals: Perez Lobo MD [Primary Care Provider] - 1-2 days Time of Disposition: 15:58
[2021-09-05 12:27] LABS: Basophils % (A) 0 %; Eosinophils # (A) 0.2 k/uL (0-0.7); Eosinophils % (A) 3 %; HGB 13.7 gm/dL (13.0-17.5); Lymphocytes # (A) 1.2 k/uL (1.0-4.8); Lymphocytes % (A) 23 %; MCH 29.4 pg (25.0-35.0); MCHC 33.4 g/dL (31.0-37.0); Mean Platelet Volume 7.4; Monocytes # (A) 0.4 k/uL (0-1.0); Monocytes % (A) 8 %; Neutrophils # (A) 3.3 k/uL (1.3-7.7); Neutrophils % (A) 64 %; Platelet Count 196 k/uL (150-450); RBC 4.66 m/uL (4.30-5.90); RDW 12.3 % (11.5-15.5); WBC 5.2 k/uL (3.8-10.6)
[2021-09-05 12:43] LABS: ALT 29 U/L (4-49); AST 36 U/L (17-59); African American GFR (CKD) >90 (>60 ml/min/1.73 sqM); Albumin 4.2 g/dL (3.5-5.0); Alkaline Phosphatase 64 U/L (38-126); Anion Gap 7 mmol/L; Blood Urea Nitrogen 20 mg/dL (9-20); Calcium 9.2 mg/dL (8.4-10.2); Carbon Dioxide 26 mmol/L (22-30); Chloride 106 mmol/L (98-107); Glucose 84 mg/dL (74-99); Non-African American GFR(CKD) >90 (>60 ml/min/1.73 sqM); Potassium 4.4 mmol/L (3.5-5.1); Sodium 139 mmol/L (137-145); Total Bilirubin 0.5 mg/dL (0.2-1.3)
--- NOTE | 2021-09-05 12:43 | XR ---
EXAMINATION TYPE: XR chest 2V DATE OF EXAM: 09/05/2021 COMPARISON: NONE TECHNIQUE: PA and lateral views submitted. HISTORY: Dizziness FINDINGS: The lungs are clear and there is no pneumothorax, pleural effusion, or focal pneumonia. Hypertrophi c and degenerative changes of the spine. IMPRESSION: 1. No acute process.
[2021-09-05 12:47] LABS: INR 0.9 (<1.2); Partial Thromboplastin Time 22.7 sec (22.0-30.0); Prothrombin Time 9.8 sec (9.0-12.0)
[2021-09-05 13:06] LABS: Appearance,Urine Clear (Clear); Bilirubin,Urine Negative (Negative); Blood,Urine Negative (Negative); Color,Urine Yellow; Glucose,Urine (UA) Negative (Negative); Ketones,Urine Negative (Negative); Leukocyte Esterase,Urine Negative (Negative); Nitrite,Urine Negative (Negative); PH, Urine 5.5 (5.0-8.0); Protein,Urine Negative (Negative); Specific Gravity,Urine 1.025 (1.001-1.035); Urobilinogen,Urine <2.0 mg/dL (<2.0)
--- NOTE | 2021-09-05 14:15 | CT ---
EXAMINATION TYPE: CT brain wo con DATE OF EXAM: 09/05/2021 COMPARISON: None HISTORY: Dizziness CT DLP: 1100.4 mGycm Automated exposure control for dose reduction was used. FINDINGS: There is no acute intracranial hemorrhage, mass effect, or midline shift identified. The ventricles and sulci are within normal limits in size. The globes are intact and the visualized sinuses are duong ar. IMPRESSION: No acute intracranial hemorrhage, mass effect, or midline shift is seen.
[2021-09-05 16:37] VITALS: BP 121/72; PULSE 56
== END 2021-09-05 17:01 | disposition home or self-care (01) ==
LOC: EC 10:56
DX: R42 Dizziness and giddiness (principal); R00.1 Bradycardia, unspecified; E78.5 Hyperlipidemia, unspecified; Z79.899 Other long term (current) drug therapy
CPT/HCPCS: 36415; 70450; 71046; 80053; 81003; 84484; 85025; 85610; 85730; 93005; 99285

== ENCOUNTER → 2022-09-15 | Outpatient (CLI) | payer MEDICARE ==
[2022-09-15 10:49] LABS: HCT 43.1 % (39.6-50.0); HGB 13.9 g/dL (13.0-17.0); MCHC 32.3 g/dL (32.0-37.0); MCV 86.9 fL (80.0-97.0); Mean Platelet Volume 9.9 fL (9.5-12.2); NRBC Per 100 WBC 0 /100 WBCS (0.0-0.0); Platelet Count 203 X 10*3/uL (140-440); RBC 4.96 X 10*6/uL (4.40-5.60); RDW 12.2 % (11.5-14.5); WBC 5.67 X 10*3/uL (4.50-10.00)
[2022-09-15 11:19] LABS: African American GFR (CKD) 87.9 (60.0-200.0); Anion Gap 10.2 mmol/L (10.00-18.00); Blood Urea Nitrogen 18.1 mg/dL (9.0-27.0); Carbon Dioxide 28.5 mmol/L (20.0-27.5); Non-African American GFR(CKD) 75.9 (60.0-200.0); Potassium 4.4 mmol/L (3.5-5.5)
== END | disposition home or self-care (01) ==
LOC: LABPAT 07:22
PROVIDERS: ATTEND Internal Medicine Interventional Cardiology
DX: Z01.812 Encounter for preprocedural laboratory examination (principal); R07.9 Chest pain, unspecified
CPT/HCPCS: 80051; 82565; 84520; 85027

== ENCOUNTER → 2023-04-11 | Outpatient (CLI) | payer MEDICARE ==
[2023-04-11 11:49] LABS: ALT 23 U/L (10-49); AST 31 U/L (14-35); VLDL Calculation 17.14 mg/dL (5.00-40.00)
[2023-04-11 11:53] LABS: Chol/HDL Ratio 2.75 Ratio; LDL Cholesterol,Calculated 78.3 mg/dL (0.0-131.0)
== END | disposition home or self-care (01) ==
LOC: LABWHC1 07:21
PROVIDERS: ATTEND Internal Medicine Interventional Cardiology
DX: E78.2 Mixed hyperlipidemia (principal)
CPT/HCPCS: 36415; 80061; 84450; 84460

== ENCOUNTER → 2023-10-16 | Outpatient (CLI) | payer MEDICARE ==
[2023-10-16 15:40] LABS: Chol/HDL Ratio 2.68 Ratio; LDL Cholesterol,Calculated 76.4 mg/dL (0.0-131.0); VLDL Calculation 18.34 mg/dL (5.00-40.00)
[2023-10-16 16:01] LABS: ALT 33 U/L (10-49); AST 38 U/L (14-35); Albumin 4.5 g/dL (3.8-4.9); Albumin/Globulin Ratio 1.61 Ratio (1.60-3.17); Alkaline Phosphatase 77 U/L (41-126); Blood Urea Nitrogen 15.4 mg/dL (9.0-27.0); Calcium 9.7 mg/dL (8.7-10.3); Carbon Dioxide 28.1 mmol/L (21.6-31.8); Chloride 105 mmol/L (96-109); Globulin 2.8 g/dL (1.6-3.3); Glucose 90 mg/dL (70-110); Potassium 4.6 mmol/L (3.5-5.5); Sodium 142 mmol/L (135-145); Total Bilirubin 0.5 mg/dL (0.3-1.2); Total Protein 7.3 g/dL (6.2-8.2)
== END | disposition home or self-care (01) ==
LOC: LABWHC1 08:20
PROVIDERS: ATTEND Internal Medicine Interventional Cardiology
DX: E78.2 Mixed hyperlipidemia (principal)
CPT/HCPCS: 36415; 80053; 80061

== ENCOUNTER → 2024-10-18 | Outpatient (CLI) | payer MEDICARE ==
[2024-10-18 10:26] LABS: ALT 28 U/L (10-49); AST 30 U/L (14-35); Chol/HDL Ratio 2.82 Ratio; LDL Cholesterol,Calculated 77.4 mg/dL (0.0-131.0); VLDL Calculation 15.54 mg/dL (5.00-40.00)
== END | disposition home or self-care (01) ==
LOC: LABWHC1 07:43
PROVIDERS: ATTEND Internal Medicine Interventional Cardiology
DX: E78.2 Mixed hyperlipidemia (principal)
CPT/HCPCS: 36415; 80061; 84450; 84460

== ENCOUNTER 2024-12-11 08:32 | Day surgery (SDC) | payer MEDICARE ==
[2024-12-04 16:24] VITALS: BMI 22.8
[~2024-12-11 08:32] MED LIST: LACTATED RINGERS 1,000 ML IV SCH
--- NOTE | 2024-12-11 09:00 | P.GSHP ---
History of Present Illness H&P Date: 12/11/24 CHIEF COMPLAINT: Colon screen HISTORY OF PRESENT ILLNESS: The patient is a 69-year-old male who presents for colon screen. Lower endoscopy was offered for further evaluation and management. PAST MEDICAL HISTORY: Please see list. PAST SURGICAL HISTORY: Please see list. MEDICATIONS: Please see list. ALLERGIES: Please see list. SOCIAL HISTORY: No illicit drug use FAMILY HISTORY: No reports of Crohn disease or ulcerative colitis. REVIEW OF ORGAN SYSTEMS: CONSTITUTIONAL: No reports of fevers or chills. PHYSICAL EXAM: VITAL SIGNS: Stable GENERAL: Well-developed pleasant in no acute distress. HEENT: No scleral icterus. Extraocular movements grossly intact. Moist buccal mucosa. NECK: Supple without lymphadenopathy. CHEST: Unlabored respirations. Equal bilateral excursions. CARDIOVASCULAR: Regular rate and rhythm. Distal 2+ pulses. ABDOMEN: Soft, nontender, nondistended. MUSCULOSKELETAL: No clubbing, cyanosis, or edema. ASSESSMENT: 1. Colon screen. PLAN: 1. Recommend proceeding with a lower endoscopy Past Medical History Past Medical History: Hearing Disorder / Deafness, Hyperlipidemia, Hypertension Additional Past Medical History / Comment(s): Chronic low back pain, bilateral tinnitis, was told "slight blockage in heart" History of Any Multi-Drug Resistant Organisms: None Reported Past Surgical History: Heart Catheterization Additional Past Surgical History / Comment(s): Colonoscopies, BILAT CATARACTS REMOVED WITH LENS IMPLANTS Past Anesthesia/Blood Transfusion Reactions: No Reported Reaction Smoking Status: Never smoker - Past Family History Father Family Medical History: Myocardial Infarction ([place]) Additional Family Medical History / Comment(s): Father of a [place] at the age of 57yrs Mother Family Medical History: Diabetes Mellitus Additional Family Medical History / Comment(s): Mother had heart problems. She lived to be 90yrs old. Medications and Allergies Home Medications Medication Instructions Recorded Confirmed Type methocarbamoL [Robaxin] 500 mg PO TID PRN 06/14/19 12/04/24 History Isosorbide Mononitrate ER [Imdur] 15 mg PO DAILY #30 dose 06/15/19 12/04/24 Rx Metoprolol Tartrate [Lopressor] 25 mg PO BID #60 tab 06/15/19 12/04/24 Rx Aspirin [Adult Low Dose Aspirin EC] 81 mg PO DAILY 09/16/22 12/04/24 History Ibuprofen 800 mg PO Q8H PRN 09/16/22 12/04/24 History Rosuvastatin [Crestor] 20 mg PO Q2D 09/16/22 12/04/24 History Rosuvastatin [Crestor] 40 mg PO Q2D 12/04/24 12/04/24 History Allergies Allergy/AdvReac Type Severity Reaction Status Date / Time hydrocodone [From Vicodin] AdvReac Nausea Verified 12/11/24 08:58
[2024-12-11] MEDS: IV FLUID CONTINUATION 1,000 ML IV ONE (09:03)
[2024-12-11 09:07] VITALS: TEMP 97.3
[2024-12-11] MEDS ORDERED: GLYCOPYRROLATE 0.2 MG/ML 2 ML VIAL ONE (10:07)
[2024-12-11] MEDS ORDERED: PROPOFOL 10 MG/ML 20 ML VIAL IV ONE (10:07)
--- NOTE | 2024-12-11 10:30 | P.PCN ---
Date of Procedure: 12/11/24 Description of Procedure: PREOPERATIVE DIAGNOSIS: Colonoscopy screening. POSTOPERATIVE DIAGNOSIS: Colonoscopy screening. Diverticulosis, scattered. OPERATION: Colonoscopy to the cecum, ileocecal valve and appendiceal orifice. SURGEON: Vane Mackenzie MD. ANESTHESIA: MAC. INDICATIONS: The patient is a 69-year-old female who presents for colonoscopy screening. Benefits and risks were described and informed consent was obtained. DESCRIPTION OF PROCEDURE: The patient had undergone Sutab prep. The patient had been brought into the operating room and laid in the left lateral decubitus position. After adequate intravenous sedation, the rectum was examined with 2% lidocaine jelly. External hemorrhoids were encountered. The rectal tone was within normal limits. No lesions were palpated in the rectal vault. An Olympus colonoscope was advanced until the cecum, ileocecal valve and appendiceal orifice were clearly viewed. The prep was excellent. Scattered diverticulosis was encountered. No colonic polyps were found. No evidence of focal colitis was found. Retroflexion of the scope demonstrated grade 1 internal hemorrhoids without active bleeding or inflammation. The colon was desufflated. The patient had tolerated the procedure well. Withdrawal time was over 6 minutes. FINDINGS: Aronchick preparation quality scale 1 (1-5) Internal hemorrhoids, grade 1 External prolapsed hemorrhoids, grade 1 No arteriovenous malformations. No adenomatous polyps. No focal colitis. RECOMMENDATIONS: Lower endoscopy 10 years, 2034 Plan - Discharge Summary Discharge Rx Participant: No New Discharge Prescriptions: Continue methocarbamoL [Robaxin] 500 mg PO TID PRN PRN Reason: Muscle Spasm Isosorbide Mononitrate ER [Imdur] 15 mg PO DAILY #30 dose Metoprolol Tartrate [Lopressor] 25 mg PO BID #60 tab Rosuvastatin [Crestor] 40 mg PO Q2D Ibuprofen 800 mg PO Q8H PRN PRN Reason: Pain Aspirin [Adult Low Dose Aspirin EC] 81 mg PO DAILY Rosuvastatin [Crestor] 20 mg PO Q2D Discharge Medication List methocarbamoL [Robaxin] 500 mg PO TID PRN 06/14/19 [History] Isosorbide Mononitrate ER [Imdur] 15 mg PO DAILY #30 dose 06/15/19 [Rx] Metoprolol Tartrate [Lopressor] 25 mg PO BID #60 tab 06/15/19 [Rx] Aspirin [Adult Low Dose Aspirin EC] 81 mg PO DAILY 09/16/22 [History] Ibuprofen 800 mg PO Q8H PRN 09/16/22 [History] Rosuvastatin [Crestor] 20 mg PO Q2D 09/16/22 [History] Rosuvastatin [Crestor] 40 mg PO Q2D 12/04/24 [History] Follow up Appointment(s)/Referral(s): Vane Mackenzie MD [STAFF PHYSICIAN] - As Needed Patient Instructions/Handouts: Diverticulosis Diet (GEN) Activity/Diet/Wound Care/Special Instructions: Repeat colonoscopy 10 years2034 Discharge Disposition: HOME SELF-CARE
[2024-12-11 10:33] VITALS: RESP 16
[2024-12-11 10:52] VITALS: BP 106/66; PULSE 58
== END 2024-12-11 11:20 | disposition home or self-care (01) ==
LOC: ORWHC2ENDO 08:32
PROVIDERS: ATTEND Surgery Plastic and Reconstructive Surgery
DX: Z12.11 Encounter for screening for malignant neoplasm of colon (principal); K57.30 Diverticulosis of large intestine without perforation or abscess without bleeding; K64.0 First degree hemorrhoids; E78.5 Hyperlipidemia, unspecified; I10 Essential (primary) hypertension; H93.19 Tinnitus, unspecified ear; Z82.49 Family history of ischemic heart disease and other diseases of the circulatory system; Z83.3 Family history of diabetes mellitus; Z88.5 Allergy status to narcotic agent; Z79.1 Long term (current) use of non-steroidal anti-inflammatories (NSAID); Z79.82 Long term (current) use of aspirin; Z79.899 Other long term (current) drug therapy
CPT/HCPCS: J2704; J1596; G0121

== ENCOUNTER 2025-02-06 08:45 | Emergency (ER) | payer MEDICARE ==
[2025-02-06 09:49] LABS: Basophils # (A) 0.03 10*3/uL (0.00-0.10); Basophils % (A) 0.5 %; Eosinophils % (A) 1.8 %; HCT 38.7 % (39.6-50.0); HGB 13.1 g/dL (13.0-17.0); Lymphocytes # (A) 0.85 10*3/uL (0.90-5.00); Lymphocytes % (A) 15.2 %; MCHC 33.9 g/dL (32.0-37.0); MCV 85.6 fL (80.0-97.0); Mean Platelet Volume 10.1 fL (9.5-12.2); Monocytes # (A) 0.34 10*3/uL (0.20-1.00); Monocytes % (A) 6.1 %; Neutrophils # (A) 4.26 10*3/uL (1.80-7.70); Neutrophils % (A) 75.9 %; Platelet Count 174 10*3/uL (140-440); RBC 4.52 10*6/uL (4.40-5.60); RDW 12.1 % (11.5-14.5); WBC 5.61 10*3/uL (4.50-10.00)
[2025-02-06] MEDS: SODIUM CHLORIDE 0.9% 1,000 ML IV STA (09:52)
[2025-02-06] MEDS: MECLIZINE 12.5 MG TAB PO STA (09:52)
[2025-02-06 10:02] LABS: ALT 23 U/L (4-49); African American GFR (CKD) >90 (>60 ml/min/1.73 sqM); Anion Gap 6 mmol/L; Blood Urea Nitrogen 17 mg/dL (9-20); Carbon Dioxide 27 mmol/L (22-30); Chloride 106 mmol/L (98-107); Glucose 127 mg/dL (74-99); Non-African American GFR(CKD) >90 (>60 ml/min/1.73 sqM); Sodium 139 mmol/L (137-145); Total Bilirubin 0.7 mg/dL (0.2-1.3); Total Protein 6.6 g/dL (6.3-8.2)
[2025-02-06 10:12] LABS: AST 33 U/L (17-59); Alkaline Phosphatase 45 U/L (38-126); Potassium 4.6 mmol/L (3.5-5.1)
--- NOTE | 2025-02-06 12:18 | ED ---
General Adult HPI - General Chief complaint: Dizziness Stated complaint: Dizziness Time Seen by Provider: 02/06/25 08:53 Source: patient, EMS Mode of arrival: EMS Limitations: no limitations - History of Present Illness Initial comments: 69-year-old male with past medical history of coronary disease who presents emergency department with dizziness. States he awoke this morning and the room was spinning on him. He has difficulty opening his eyes and moving his head as it makes him feel nauseated. No history of similar in the past. Does have chronic hearing loss and tinnitus. He denies any head trauma. No use of blood thinners. No chest pain or difficulty breathing. No numbness, tingling or weakness in his extremities. He denies any recent illnesses. No recent medication changes. No other alleviating, precipitating or modifying factors - Related Data Home Medications Medication Instructions Recorded Confirmed methocarbamoL [Robaxin] 500 mg PO TID PRN 06/14/19 02/06/25 Aspirin [Adult Low Dose Aspirin EC] 81 mg PO DAILY 09/16/22 02/06/25 Ibuprofen 800 mg PO Q8H PRN 09/16/22 02/06/25 Rosuvastatin [Crestor] 20 mg PO Q2D 09/16/22 02/06/25 Rosuvastatin [Crestor] 40 mg PO Q2D 12/04/24 02/06/25 Isosorbide Mononitrate ER [Imdur] 15 mg PO DAILY 02/06/25 02/06/25 Previous Rx's Medication Instructions Recorded Metoprolol Tartrate [Lopressor] 25 mg PO BID #60 tab 06/15/19 Meclizine [Antivert] 25 mg PO TID #25 tab 02/06/25 Allergies Allergy/AdvReac Type Severity Reaction Status Date / Time hydrocodone [From Vicodin] AdvReac Nausea Verified 02/06/25 10:29 Review of Systems ROS Statement: Those systems with pertinent positive or pertinent negative responses have been documented in the HPI. ROS Other: All systems not noted in ROS Statement are negative. Past Medical History Past Medical History: Hearing Disorder / Deafness, Hyperlipidemia, Hypertension Additional Past Medical History / Comment(s): Chronic low back pain, bilateral tinnitis, was told "slight blockage in heart" History of Any Multi-Drug Resistant Organisms: None Reported Past Surgical History: Heart Catheterization Additional Past Surgical History / Comment(s): Colonoscopies, BILAT CATARACTS REMOVED WITH LENS IMPLANTS Past Anesthesia/Blood Transfusion Reactions: No Reported Reaction Past Psychological History: No Psychological Hx Reported Smoking Status: Never smoker Past Alcohol Use History: Rare Past Drug Use History: None Reported - Past Family History Father Family Medical History: Myocardial Infarction ([place]) Additional Family Medical History / Comment(s): Father of a [place] at the age of 57yrs Mother Family Medical History: Diabetes Mellitus Additional Family Medical History / Comment(s): Mother had heart problems. She lived to be 90yrs old. General Exam Limitations: no limitations General appearance: alert, in no apparent distress Head exam: Present: atraumatic, normocephalic, normal inspection Eye exam: Present: normal appearance, PERRL, EOMI. Absent: scleral icterus, conjunctival injection, periorbital swelling ENT exam: Present: normal exam, mucous membranes moist Neck exam: Present: normal inspection. Absent: tenderness, meningismus, lymphadenopathy Respiratory exam: Present: normal lung sounds bilaterally. Absent: respiratory distress, wheezes, rales, rhonchi, stridor Cardiovascular Exam: Present: regular rate, normal rhythm, normal heart sounds. Absent: systolic murmur, diastolic murmur, rubs, gallop, clicks GI/Abdominal exam: Present: soft, normal bowel sounds. Absent: distended, tenderness, guarding, rebound, rigid Extremities exam: Present: normal inspection, full ROM, normal capillary refill. Absent: tenderness, pedal edema, joint swelling, calf tenderness Back exam: Present: normal inspection Neurological exam: Present: alert, oriented X3, CN II-XII intact Psychiatric exam: Present: normal affect, normal mood Skin exam: Present: warm, dry, intact, normal color. Absent: rash Course Vital Signs 02/06/25 02/06/25 02/06/25 08:49 10:21 11:14 Temperature 97.5 F L Pulse Rate 50 L 51 L 51 L Respiratory 17 17 16 Rate Blood Pressure 126/74 133/74 114/74 O2 Sat by Pulse 96 98 96 Oximetry 02/06/25 12:33 Temperature 97.6 F Pulse Rate 50 L Respiratory 17 Rate Blood Pressure 111/73 O2 Sat by Pulse 96 Oximetry Medical Decision Making - Medical Decision Making Was pt. sent in by a medical professional or institution (, PA, REUSE TECHNICIAN, urgent care, hospital, or longterm...) When possible be specific @ -No Did you speak to anyone other than the patient for history (EMS, parent, family, police, friend...)? What history was obtained from this source @ -Spoke with EMS for history Did you review nursing and triage notes (agree or disagree)? Why? @ -I reviewed and agree with nursing and triage notes Were old charts reviewed (outside hosp., previous admission, EMS record, old EKG, old radiological studies, urgent care reports/EKG's, longterm records)? Report findings @ -No old charts were reviewed Differential Diagnosis (chest pain, altered mental status, abdominal pain women, abdominal pain men, vaginal bleeding, weakness, fever, dyspnea, syncope, headache, dizziness, GI bleed, back pain, seizure, CVA, palpatations, mental health, musculoskeletal)? @ -Differential Dizziness: Benign paroxysmal positional Vertigo, Meniere's disease, otitis media, acoustic neuroma, vertebrobasilar insufficiency, cerebellar stroke, encephalitis, hypovolemic, arrhythmia, coronary artery syndrome, anemia, this is not meant to be an all-inclusive list EKG interpreted by me (3pts min.). @ -Yes and demonstrates sinus bradycardia with a rate of 49. ME interval 170. QRS 94. QTc of 405. No high degree of heart block X-rays interpreted by me (1pt min.). @ -Yes which demonstrates no acute process CT interpreted by me (1pt min.). @ -None done U/S interpreted by me (1pt. min.). @ -None done What testing was considered but not performed or refused? (CT, X-rays, U/S, labs)? Why? @ -CT brain however patient does have improvement in symptoms with meclizine What meds were considered but not given or refused? Why? @ -None Did you discuss the management of the patient with other professionals (liliya sandsfedequan i.e. , PA, REUSE TECHNICIAN, lab, RT, psych nurse, social work associate, application support administrator, teacher, classification officer, case therapist)? Give summary @ -No Was smoking cessation discussed for >3mins.? @ -No Was critical care preformed (if so, how long)? @ -No Were there social determinants of health that impacted care today? How? (Homelessness, low income, unemployed, alcoholism, drug addiction, transportation, low edu. Level, literacy, decrease access to med. care, shelter, rehab)? @ -No Was there de-escalation of care discussed even if they declined (Discuss DNR or withdrawal of care, Hospice)? DNR status @ -No What co-morbidities impacted this encounter? (DM, HTN, Smoking, COPD, CAD, Cancer, CVA, ARF, Chemo, Hep., AIDS, mental health diagnosis, sleep apnea, morbid obesity)? @ -Coronary disease Was patient admitted / discharged? Hospital course, mention meds given and route, prescriptions, significant lab abnormalities, going to OR and other pertinent info. @ -Upon arrival patient seen and evaluated in room 11. Thorough history and physical exam was performed. Patient placed on continuous pulse ox and cardiac monitoring. Twelve-lead EKG is obtained. Laboratory studies are conducted. Patient was given a meclizine. I discussed results with the patient. He reports that his symptoms are much improved. I did discuss completing a CT scan however patient would like to hold off right now. He will be discharged home with a prescription of the meclizine to take every 8 hours as needed for the vertigo. Patient is bradycardic throughout his stay. He takes metoprolol. This will be cut in half to 12.5 mg. He will follow-up with his primary care doctor in 2 to 4 days. He is to follow-up with his application support technician as well and notify him of the medication change. return for any new or worsening symptoms. Patient agreeable to plan he was discharged in stable condition Undiagnosed new problem with uncertain prognosis? @ -No Drug Therapy requiring intensive monitoring for toxicity (Heparin, Nitro, Insulin, Cardizem)? @ -No Were any procedures done? @ -No Diagnosis/symptom? @ -Acute vertigo Acute, or Chronic, or Acute on Chronic? @ -Acute Uncomplicated (without systemic symptoms) or Complicated (systemic symptoms)? @ -Complicated Side effects of treatment? @ -No Exacerbation, Progression, or Severe Exacerbation? @ -No Poses a threat to life or bodily function? How? (Chest pain, [place], [place], pneumonia, PE, COPD, DKA, ARF, appy, cholecystitis, CVA, Diverticulitis, Homicidal, Suic idal, threat to staff... and all critical care pts) @ -No - Lab Data Result diagrams: 02/06/25 09:23 02/06/25 09:23 Lab Results 02/06/25 02/06/25 02/06/25 Range/Units 09:23 09:23 09:23 WBC 5.61 (4.50-10.00) 10*3/uL RBC 4.52 (4.40-5.60) 10*6/uL Hgb 13.1 (13.0-17.0) g/dL Hct 38.7 L (39.6-50.0) % MCV 85.6 (80.0-97.0) fL MCH 29.0 (27.0-32.0) pg MCHC 33.9 (32.0-37.0) g/dL Plt Count 174 (140-440) 10*3/uL MPV 10.1 (9.5-12.2) fL Immature Gran % (Auto) 0.5 % Neutrophils % 75.9 % Lymphocytes % 15.2 % Monocytes % 6.1 % Eosinophils % 1.8 % Basophils % 0.5 % Immature Gran # 0.03 (0.00-0.04) 10*3/uL Neutrophils # 4.26 (1.80-7.70) 10*3/uL Lymphocytes # 0.85 L (0.90-5.00) 10*3/uL Monocytes # 0.34 (0.20-1.00) 10*3/uL Eosinophils # 0.10 (0.04-0.35) 10*3/uL Basophils # 0.03 (0.00-0.10) 10*3/uL Sodium 139 (137-145) mmol/L Potassium 4.6 (3.5-5.1) mmol/L Chloride 106 (98-107) mmol/L Carbon Dioxide 27 (22-30) mmol/L Anion Gap 6 mmol/L BUN 17 (9-20) mg/dL Creatinine 0.75 (0.66-1.25) mg/dL Est GFR (CKD-EPI)AfAm >90 (>60 ml/min/1.73 sqM) Est GFR (CKD-EPI)NonAf >90 (>60 ml/min/1.73 sqM) Glucose 127 H (74-99) mg/dL Lactic Ac Sepsis Rflx Plasma Lactic Acid Jean-Paul 3.1 H* (0.7-2.0) mmol/L Calcium 9.0 (8.4-10.2) mg/dL Total Bilirubin 0.7 (0.2-1.3) mg/dL AST 33 (17-59) U/L ALT 23 (4-49) U/L Alkaline Phosphatase 45 (38-126) U/L Troponin I (0.000-0.034) ng/mL Total Protein 6.6 (6.3-8.2) g/dL Albumin 4.0 (3.5-5.0) g/dL 02/06/25 02/06/25 Range/Units 09:23 10:16 WBC (4.50-10.00) 10*3/uL RBC (4.40-5.60) 10*6/uL Hgb (13.0-17.0) g/dL Hct (39.6-50.0) % MCV (80.0-97.0) fL MCH (27.0-32.0) pg MCHC (32.0-37.0) g/dL Plt Count (140-440) 10*3/uL MPV (9.5-12.2) fL Immature Gran % (Auto) % Neutrophils % % Lymphocytes % % Monocytes % % Eosinophils % % Basophils % % Immature Gran # (0.00-0.04) 10*3/uL Neutrophils # (1.80-7.70) 10*3/uL Lymphocytes # (0.90-5.00) 10*3/uL Monocytes # (0.20-1.00) 10*3/uL Eosinophils # (0.04-0.35) 10*3/uL Basophils # (0.00-0.10) 10*3/uL Sodium (137-145) mmol/L Potassium (3.5-5.1) mmol/L Chloride (98-107) mmol/L Carbon Dioxide (22-30) mmol/L Anion Gap mmol/L BUN (9-20) mg/dL Creatinine (0.66-1.25) mg/dL Est GFR (CKD-EPI)AfAm (>60 ml/min/1.73 sqM) Est GFR (CKD-EPI)NonAf (>60 ml/min/1.73 sqM) Glucose (74-99) mg/dL Lactic Ac Sepsis Rflx Y Plasma Lactic Acid Jean-Paul (0.7-2.0) mmol/L Calcium (8.4-10.2) mg/dL Total Bilirubin (0.2-1.3) mg/dL AST (17-59) U/L ALT (4-49) U/L Alkaline Phosphatase (38-126) U/L Troponin I 0.013 (0.000-0.034) ng/mL Total Protein (6.3-8.2) g/dL Albumin (3.5-5.0) g/dL Disposition Clinical Impression: Vertigo, Bradycardia Disposition: HOME SELF-CARE Condition: Stable Instructions (If sedation given, give patient instructions): Dizziness (ED) Additional Instructions: Please take the meclizine up to 3 times daily for the dizziness. Cut your Lopressor/metoprolol in half. You will now take 12.5 mg twice a day. Follow-up with your primary care doctor within 2 to 4 days to reevaluate your symptoms and if you have any new or worsening symptoms, return to the emergency department Prescriptions: Meclizine [Antivert] 25 mg PO TID #25 tab Is patient prescribed a controlled substance at d/c from ED?: No Referrals: Clemente Muñoz MD [Primary Care Provider] - 1-2 days Time of Disposition: 12:18
[2025-02-06 12:39] VITALS: BP 111/73; PULSE 50; RESP 17; TEMP 97.6
== END 2025-02-06 12:40 | disposition home or self-care (01) ==
LOC: EC 08:45
DX: R42 Dizziness and giddiness (principal); R00.1 Bradycardia, unspecified; Z88.5 Allergy status to narcotic agent
CPT/HCPCS: 36415; 80053; 83605; 84484; 85025; 93005; 96360; 99284